=== PATIENT | female | born 1950 | race African-American/Black ===

== ENCOUNTER → 2017-09-28 08:40 | Outpatient (REF) | payer MEDICARE, MEDICAID, SELFPAY ==
[2017-09-28 14:15] LABS: ALT 20 U/L (12-78); AST 20 U/L (15-37); Albumin 3.5 g/dL (3.4-5.0); Alkaline Phosphatase 87 U/L (46-116); Anion Gap 9.8 mmol/L (3-11); BUN 21 mg/dL (7-18); Bilirubin, Total 0.4 mg/dL (0.2-1.0); CO2 27.2 mmol/L (21.0-32.0); CREATININE 0.97 mg/dL (0.55-1.02); Calcium 9.2 mg/dL (8.5-10.1); Chloride 106 mmol/L (98-107); Cholesterol 266 mg/dL (50-200); Estimated GFR 57.11 (mL/min/1.73m2); Glucose 108 mg/dL (70-100); HDL Cholesterol 49 mg/dL (40-60); LDL CHOLESTEROL 172 mg/dL (<100); Potassium 4.1 mmol/L (3.5-5.1); Sodium 143 mmol/L (136-145); Total Protein 7.4 g/dL (6.4-8.2); Triglyceride 230 mg/dL (30-150)
== END ==
LOC: NCHCN 08:40
PROVIDERS: PCP Nurse Practitioner Family; Visit Provider Nurse Practitioner Family
DX: E78.5 Hyperlipidemia, unspecified (principal); N26.1 Atrophy of kidney (terminal)
CPT/HCPCS: 80053; 80061; 83721

== ENCOUNTER 2018-02-09 00:22 | Outpatient (CLI) | payer MEDICARE, MEDICAID, SELFPAY ==
--- NOTE | 2018-02-09 12:52 | DI.US_ITS ---
SYMPTOMS/DIAGNOSIS: UTERINE LEIOMYOMA, FIBROID SIZE, D25.9 PELVIC ULTRASOUND: Comparison is made with August,. Transabdominal exam was performed. The uterus measures 13.1 x 8.5 x 8.7 cm. There has been mild interval increase in size of the previously noted fundal fibroid, now measuring 8.2 x 7.9 x 8.7 cm compared with 8 x 8.2 x 7.4 cm on the previous exam. Other smaller fibroids were identified. The endometrial stripe could not be visualized. The right ovary appears normal in size and appearance. The left ovary was not visualized. Right renal atrophy is again noted. The left kidney shows some compensatory hypertrophy. IMPRESSION: Mild interval increase in size of uterine fibroid.
== END 2018-02-09 00:42 ==
PROVIDERS: PCP Nurse Practitioner Family; Visit Provider Obstetrics & Gynecology
DX: D25.9 Leiomyoma of uterus, unspecified (principal)
CPT/HCPCS: 76856

== ENCOUNTER 2018-09-09 12:04 | Outpatient (REF) | payer MEDICARE, MEDICAID, SELFPAY ==
[2018-09-09 19:38] LABS: HGB 14.7 g/dL (12.0-15.5); Mean Corp. HGB Concentration 33.4 g/dL (32.0-36.0); Mean Corpuscular Hemoglobin 31.4 pg (27.0-33.0); Mean Platelet Volume 10.2 fL (8.0-11.0); Platelet Count 282 x1000/uL (130-400); RBC 4.68 m/cumm (4.00-5.20); RBC Distribution Width 13.1 % (11.7-14.6); White Blood Cell Count 7.09 k/cumm (4.4-10.8)
[2018-09-09 19:58] LABS: Anion Gap 5.2 mmol/L (3-11); BUN 30 mg/dL (7-18); CO2 35.8 mmol/L (21.0-32.0); CREATININE 0.94 mg/dL (0.55-1.02); Calcium 10.1 mg/dL (8.5-10.1); Chloride 97 mmol/L (98-107); Estimated GFR 59.04 (mL/min/1.73m2); Glucose 94 mg/dL (70-100); Sodium 138 mmol/L (136-145); TSH (W/Ref FT4) 1.55 uIU/mL (0.36-3.74)
[2018-09-09 20:06] LABS: PROTEIN < 6.0 mg/dL
[2018-09-09 20:07] LABS: Potassium 2.8 mmol/L (3.5-5.1)
[2018-09-09 20:08] LABS: COMMENT (LAB VIEW ONLY) 33.57 mg/dL
[2018-09-09 20:09] LABS: COMMENT (LAB VIEW ONLY) 33.89 mg/dL; Microalb ug/mg Crea 53.7 ug/mg Cr
== END 2018-09-09 12:24 ==
LOC: NCHCN 12:04
PROVIDERS: PCP Nurse Practitioner Family; Visit Provider Nurse Practitioner Family
DX: E11.610 Type 2 diabetes mellitus with diabetic neuropathic arthropathy (principal); R80.9 Proteinuria, unspecified
CPT/HCPCS: 80048; 85027; 82043; 82565; 82570; 84156; 84443

== ENCOUNTER 2018-10-04 16:06 | Outpatient (REF) | payer MEDICARE, MEDICAID, SELFPAY ==
[2018-10-04 17:08] LABS: Potassium 2.9 mmol/L (3.5-5.1)
--- NOTE | 2018-10-07 13:20 | CMPROGNOTE_ITS ---
- If Service Date Differs Date of service: 10/07/18 Time of Service: 13:20 Care Management Progress Note CM contacted Providers office patient has a new active prescription for potassium by her provider. Provider is aware of the K+ per lab. CM attempted contact with patient no answer on the cell and unable to leave a message. 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 Her follow up visit with Jesse Cheng is on 10/24/18.
== END 2018-10-04 16:26 ==
LOC: NCHCN 16:06
PROVIDERS: PCP Nurse Practitioner Family; Visit Provider Nurse Practitioner Family
DX: E87.6 Hypokalemia (principal)
CPT/HCPCS: 84132

== ENCOUNTER 2018-10-11 09:44 | Outpatient (CLI) | payer MEDICARE, MEDICAID, SELFPAY | END 2018-10-11 10:04 | PROVIDERS: PCP Nurse Practitioner Family; Visit Provider Nurse Practitioner Family | DX: E87.6 Hypokalemia (principal) | CPT/HCPCS: 36415; 84132 ==

== ENCOUNTER 2018-10-28 13:52 | Outpatient (REF) | payer MEDICARE, MEDICAID, SELFPAY ==
[2018-10-28 18:58] LABS: Anion Gap 12.5 mmol/L (3-11); BUN 17 mg/dL (7-18); CO2 26.5 mmol/L (21.0-32.0); CREATININE 1.07 mg/dL (0.55-1.02); Calcium 9.5 mg/dL (8.5-10.1); Chloride 102 mmol/L (98-107); Estimated GFR 50.84 (mL/min/1.73m2); Glucose 144 mg/dL (70-100); Potassium 3.3 mmol/L (3.5-5.1); Sodium 141 mmol/L (136-145)
== END 2018-10-28 14:12 ==
LOC: NCHCN 13:52
PROVIDERS: PCP Nurse Practitioner Family; Visit Provider Nurse Practitioner Family
DX: E87.6 Hypokalemia (principal)
CPT/HCPCS: 80048

== ENCOUNTER 2018-11-04 17:57 | Outpatient (REF) | payer MEDICARE, MEDICAID, SELFPAY ==
[2018-11-04 18:15] LABS: Anion Gap 9.3 mmol/L (3-11); BUN 21 mg/dL (7-18); CO2 30.7 mmol/L (21.0-32.0); Calcium 9.4 mg/dL (8.5-10.1); Chloride 102 mmol/L (98-107); Estimated GFR 54.97 (mL/min/1.73m2); Glucose 108 mg/dL (70-100); Potassium 3.3 mmol/L (3.5-5.1); Sodium 142 mmol/L (136-145)
== END 2018-11-04 18:17 ==
LOC: NCHCN 17:57
PROVIDERS: PCP Nurse Practitioner Family; Visit Provider Nurse Practitioner Family
DX: E87.6 Hypokalemia (principal)
CPT/HCPCS: 80048

== ENCOUNTER 2019-10-12 11:48 | Outpatient (REF) | payer MEDICARE, MEDICAID, SELFPAY ==
[2019-10-12 15:43] LABS: HGB 15.3 g/dL (11.2-15.7); MCH 32.4 pg (27.0-33.0); MCV 95.3 fL (80-95); Platelet Count 292 10^3/uL (130-400); RBC 4.72 10^6/uL (3.93-5.22); RDW 13.4 % (11.7-14.6); RDW-SD 47.2 fL; WBC 8.65 10^3/uL (4.4-10.8)
[2019-10-12 16:29] LABS: PROTEIN 123.9 mg/dL
[2019-10-12 16:30] LABS: COMMENT (LAB VIEW ONLY) 130.17 mg/dL; Prot/Crea Ur Ratio 0.95
[2019-10-12 16:40] LABS: COMMENT (LAB VIEW ONLY) 129.21 mg/dL
[2019-10-12 16:45] LABS: Microalb ug/mg Crea 673.2 ug/mg Cr
[2019-10-12 16:56] LABS: ALT 23 U/L (14-59); AST 15 U/L (15-37); Albumin 3.8 g/dL (3.4-5.0); Alkaline Phosphatase 84 U/L (46-116); Anion Gap 9.3 mmol/L (3-11); BUN 26 mg/dL (7-18); Bilirubin, Total 0.5 mg/dL (0.2-1.0); CO2 28.7 mmol/L (21.0-32.0); CREATININE 1.05 mg/dL (0.55-1.02); Calcium 9.9 mg/dL (8.5-10.1); Chloride 102 mmol/L (98-107); Cholesterol 257 mg/dL (<200); Estimated GFR 51.81 (mL/min/1.73m2); Glucose 194 mg/dL (74-106); HDL Cholesterol 39 mg/dL (40-60); Sodium 140 mmol/L (136-145); Total Protein 7.7 g/dL (6.4-8.2); Triglyceride 436 mg/dL (<150)
[2019-10-12 17:13] LABS: Potassium 2.9 mmol/L (3.5-5.1)
[2019-10-12 17:26] LABS: LDL CHOLESTEROL 147 mg/dL (<100)
== END 2019-10-12 12:08 ==
LOC: NCHCN 11:48
PROVIDERS: PCP Nurse Practitioner Family; Visit Provider Nurse Practitioner Family
DX: E11.610 Type 2 diabetes mellitus with diabetic neuropathic arthropathy (principal); E87.6 Hypokalemia; E78.5 Hyperlipidemia, unspecified
CPT/HCPCS: 80053; 80061; 83721; 85027; 82043; 82565; 82570; 84156

== ENCOUNTER 2019-11-10 18:34 | Outpatient (REF) | payer MEDICARE, MEDICAID, SELFPAY ==
[2019-11-10 20:06] LABS: Amylase 68 U/L (25-115)
== END 2019-11-10 18:54 ==
LOC: NCHCN 18:34
PROVIDERS: PCP Nurse Practitioner Family; Visit Provider Nurse Practitioner Family
DX: E87.6 Hypokalemia (principal); R10.13 Epigastric pain
CPT/HCPCS: 82150

== ENCOUNTER 2019-12-07 01:16 | Outpatient (CLI) | payer MEDICARE, MEDICAID, SELFPAY ==
--- NOTE | 2019-12-07 | DI.US_ITS ---
EXAM: US ABDOMEN CLINICAL HISTORY: EPIGASTRIC PAIN,R10.13,HEPATOMEGALY,R16.0 TECHNIQUE: Ultrasound performed using standard protocol. COMPARISON: US US pelvis from 02/09/2018 FINDINGS: Abdominal ultrasound was performed according to the usual protocol. Hepatic parenchyma is of increas ed echogenicity and is mildly heterogeneous in echotexture, dependent portions of are nonvisualized. Findings may represent hepatic steatosis. There is reportedly been a prior cholecystectomy. There is no biliary dilatation. Pancreas appears intact as visualized although incompletely seen. Right renal atrophy noted as seen on prior scans. Left kidney appears normal with no evidence of hyd ronephrosis or nephrolithiasis. Spleen is unremarkable in appearance. Abdominal aorta and IVC are of normal diameter. IMPRESSION: Probable hepatic steatosis. Otherwise unremarkable scan post cholecystectomy. DATA REPOSITORY:
== END 2019-12-07 01:36 ==
PROVIDERS: PCP Nurse Practitioner Family; Visit Provider Nurse Practitioner Family
DX: R16.0 Hepatomegaly, not elsewhere classified (principal); R10.13 Epigastric pain
CPT/HCPCS: 76700

== ENCOUNTER 2020-03-14 | Outpatient (REF) | payer MEDICARE, MEDICAID, SELFPAY ==
[2020-03-14 18:44] LABS: ALT 21 U/L (14-59); AST 15 U/L (15-37); Albumin 3.7 g/dL (3.4-5.0); Alkaline Phosphatase 86 U/L (46-116); Anion Gap 10.9 mmol/L (3-11); BUN 17 mg/dL (7-18); Bilirubin, Total 0.4 mg/dL (0.2-1.0); CO2 28.1 mmol/L (21.0-32.0); CREATININE 0.9 mg/dL (0.55-1.02); Calcium 9.9 mg/dL (8.5-10.1); Chloride 101 mmol/L (98-107); Glucose 100 mg/dL (74-106); Magnesium 1.8 mg/dL (1.8-2.4); Potassium 3.3 mmol/L (3.5-5.1); Sodium 140 mmol/L (136-145); Total Protein 7.6 g/dL (6.4-8.2)
[2020-03-14 18:45] LABS: HCT 42.1 % (36.0-46.0); HGB 14.3 g/dL (11.2-15.7); MCH 31.8 pg (27.0-33.0); MCV 93.6 fL (80-95); MPV 9.6 fL (8.0-11.0); Platelet Count 294 10^3/uL (130-400); RDW-SD 44.6 fL; WBC 7.73 10^3/uL (4.4-10.8)
[2020-03-14 19:27] LABS: Bilirubin Negative (Negative); Blood Negative (Negative); Clarity Clear (Clear); Glucose Negative (Negative); Ketones Negative (Negative); Leukocyte Esterase Trace (Negative); Nitrite Negative (Negative); Specific Gravity 1.015 (1.005-1.025); Urobilinogen 0.2 EU/dL (Up TO 0.2)
[2020-03-14 19:35] LABS: Epithelial Cells Moderate HPF (Negative); RBC Negative HPF (0-2); WBC 20-50 HPF (0-5)
[2020-03-14 19:36] LABS: Bacteria Many HPF (Negative); C & S Indicated? No/Sq. Contamination; Casts Negative LPF (Negative); Crystals Negative HPF (Negative); Mucus Negative (Negative)
[2020-03-14 20:50] LABS: Hemoglobin A1C 5.4 % (<5.7)
[2020-03-15 13:00] LABS: Vitamin D 25 Total 23.5 ng/ml (30-100)
[2020-03-15 13:09] LABS: Vitamin B12 468 pg/mL (193-986)
[2020-03-15 22:13] LABS: Folate 16.8 ng/mL (See Note)
== END 2020-03-15 00:22 | disposition home or self-care (01) ==
LOC: NCHCN
PROVIDERS: PCP Nurse Practitioner Family; Visit Provider Student in an Organized Health Care Education/Training Program
DX: K21.9 Gastro-esophageal reflux disease without esophagitis (principal); R10.13 Epigastric pain; E87.6 Hypokalemia; E11.610 Type 2 diabetes mellitus with diabetic neuropathic arthropathy; I10 Essential (primary) hypertension
CPT/HCPCS: 80053; 82306; 85027; 81003; 81015; 82607; 82746; 83036; 83735

== ENCOUNTER → 2020-05-31 11:28 | Outpatient (BNVA) | payer MEDICARE, MEDICAID, SELFPAY | PROVIDERS: PCP Nurse Practitioner Family; Referring Provider Nurse Practitioner Family; Visit Provider Physical Therapy Assistant | DX: K21.9 Gastro-esophageal reflux disease without esophagitis (principal); Z12.11 Encounter for screening for malignant neoplasm of colon; E11.9 Type 2 diabetes mellitus without complications; I10 Essential (primary) hypertension; G47.33 Obstructive sleep apnea (adult) (pediatric) | CPT/HCPCS: 99203 ==

== ENCOUNTER → 2020-06-20 13:26 | Outpatient (BNVA) | payer MEDICARE, MEDICAID, SELFPAY | PROVIDERS: PCP Nurse Practitioner Family; Referring Provider Nurse Practitioner Family; Visit Provider Physical Therapy Assistant | DX: K21.9 Gastro-esophageal reflux disease without esophagitis (principal); I10 Essential (primary) hypertension | CPT/HCPCS: 99213 ==

== ENCOUNTER 2020-06-28 19:45 | Outpatient (REF) | payer MEDICARE, MEDICAID, SELFPAY ==
[2020-06-28 18:56] LABS: Anion Gap 10.1 mmol/L (3-11); BUN 22 mg/dL (7-18); CO2 26.9 mmol/L (21.0-32.0); Calcium 9.5 mg/dL (8.5-10.1); Chloride 105 mmol/L (98-107); Estimated GFR 54.66 (mL/min/1.73m2); Glucose 211 mg/dL (74-106); Potassium 3.6 mmol/L (3.5-5.1); Sodium 142 mmol/L (136-145)
== END 2020-06-28 19:46 | disposition home or self-care (01) ==
LOC: NCHCN 19:45
PROVIDERS: PCP Nurse Practitioner Family; Visit Provider Physician Assistant
DX: I10 Essential (primary) hypertension (principal)
CPT/HCPCS: 80048

== ENCOUNTER → 2020-12-27 09:36 | Outpatient (BNVA) | payer MEDICARE, MEDICAID, SELFPAY | PROVIDERS: PCP Physician Assistant; Referring Provider Physician Assistant; Visit Provider Physical Therapy Assistant | DX: K21.9 Gastro-esophageal reflux disease without esophagitis (principal); Z12.11 Encounter for screening for malignant neoplasm of colon; I10 Essential (primary) hypertension; E11.9 Type 2 diabetes mellitus without complications | CPT/HCPCS: 99214 ==

== ENCOUNTER 2021-01-17 08:18 | Outpatient (REF) | payer MEDICARE, MEDICAID, SELFPAY ==
[2021-01-17 15:09] LABS: COMMENT (LAB VIEW ONLY) 65.08 mg/dL
[2021-01-17 15:23] LABS: ALT 28 U/L (14-59); AST 14 U/L (15-37); Albumin 3.7 g/dL (3.4-5.0); Alkaline Phosphatase 92 U/L (46-116); Anion Gap 9.6 mmol/L (3-11); BUN 21 mg/dL (7-18); Bilirubin, Total 0.2 mg/dL (0.2-1.0); CO2 29.4 mmol/L (21.0-32.0); CREATININE 0.8 mg/dL (0.55-1.02); Calcium 9.8 mg/dL (8.5-10.1); Calculated LDL 181 mg/dL (<100); Chloride 105 mmol/L (98-107); Cholesterol 275 mg/dL (<200); Glucose 125 mg/dL (74-106); HDL Cholesterol 44 mg/dL (40-60); Sodium 144 mmol/L (136-145); Total Protein 7.6 g/dL (6.4-8.2); Triglyceride 251 mg/dL (<150)
[2021-01-17 16:04] LABS: Hemoglobin A1C 7.1 % (<5.7)
== END 2021-01-17 08:19 | disposition home or self-care (01) ==
LOC: NCHCN 08:18
PROVIDERS: PCP Physician Assistant; Visit Provider Physician Assistant
DX: E11.610 Type 2 diabetes mellitus with diabetic neuropathic arthropathy (principal); E78.5 Hyperlipidemia, unspecified
CPT/HCPCS: 80053; 80061; 82043; 82570; 83036

== ENCOUNTER 2021-04-28 01:53 | Outpatient (CLI) | payer OTHER, MEDICAID, SELFPAY ==
--- NOTE | 2021-04-28 | DI.MAMMO_ITS ---
Exam(s) MAMMO SCREENING EXAM: MAMMO SCREENING CLINICAL HISTORY: SCREENING FOR BREAST CANCER Z12.39. TECHNIQUE: Bilateral full field digital CC and MLO mammographic images were obtained with 3D tomosyn thesis and utilizing computer aided detection (CAD). COMPARISON: Prior mammograms were reviewed, the most recent being March 2017. FINDINGS: Asymmetric tissue anteriorly in the right breast CC view less concerning appearance 3D imaging and no t evident on MLO. No new malignant-appearing microcalcification groups in this region or elsewhere in either breast. S cattered benign micro and macrocalcifications are again noted. There are no new spiculated masses nor malignant appearing microcalcification groups. There is no significant architectural distortion nor skin thickening-retraction. IMPRESSION: Benign findings. No radiographic evidence of malignancy. BI-RADS Category 2 - Benign Findings Breast Density - Category B - Scattered areas of fibroglandular density Breast density Category C or D implies that the patient has dense breast tissue. Dense breast tissue can make it harder to find cancer on a mammogram. Dense breast tissue is also associated with an incr eased risk of breast cancer. This information about the result of the mammogram report was provided to the patient to raise their awareness. Use this report when you speak with the patient about their risks for breast cancer, which includes their family history. At that time, you may recommend additional screening tests (Ultrasoun d or MRI) as these tests may add significant information. A negative radiographic report should not delay biopsy if a dominant or clinically suspicious mass is present. Up to ten percent of cancers are not identified on mammography. A negative report may reinforce clinical impression. Adenosis and dense breasts may obscure an underlying neoplasm. False positive reports average 6 to 10%. Patient will receive a letter notifying them of these results.
== END 2021-04-28 02:13 ==
PROVIDERS: PCP Physician Assistant; Visit Provider Physician Assistant
DX: Z12.31 Encounter for screening mammogram for malignant neoplasm of breast (principal)
CPT/HCPCS: 77063; 77067

== ENCOUNTER 2021-06-26 20:24 | Outpatient (REF) | payer OTHER, MEDICAID, SELFPAY | END 2021-06-26 20:25 | disposition home or self-care (01) | LOC: NCHCN 20:24 | PROVIDERS: PCP Physician Assistant; Visit Provider Nurse Practitioner Family | DX: N39.0 Urinary tract infection, site not specified (principal) | CPT/HCPCS: 87077; 87086; 87186 ==

== ENCOUNTER 2021-09-04 10:20 | Emergency (ER) | payer OTHER, MEDICAID, SELFPAY ==
[2021-09-04 10:41] VITALS: BP 139/84; PULSE 103; RESP 20; TEMP 37; O2SAT 99
--- NOTE | 2021-09-04 11:00 | DI.CT_ITS ---
Exam(s) CT ABDOMEN PELVIS W EXAM: CT ABDOMEN PELVIS W CLINICAL HISTORY: Umbilical hernia, Now LLQ abd pain TECHNIQUE: Imaging Protocol: Axial computed tomography images with coronal and sagittal reformatted images were created and reviewed CONTRAST MATERIAL: Intravenous: Omnipaque 350 Contrast volume:100 mL Oral: No COMPARISON: CT ABD PELVIS WITH CONTRAST from 11/22/2014 CT CHEST FOR PULMONARY EMBOLUS from 01/11/2016 FINDINGS: ABDOMEN: Lung Bases: There is a moderate size hiatal hernia. There are stable tiny peripheral nodules in the lung bases. No follow-up is recommended. Liver: Normal density. No measurable mass. Portal, Superior Mesenteric, and Splenic Veins: Unremarkable. Gallbladder and Biliary Tract: Status post cholecystectomy. No biliary ductal dilatation. Pancreas: Normal density, no abnormal calcifications or inflammatory process. Spleen: Normal. Adrenals: No masses seen. Kidneys: There is again seen marked right renal atrophy. The left kidney is unremarkable. No radiod ense stones or obstructive uropathy. No masses seen. Abdominal Aorta: Abdominal portion non-dilated. Atherosclerosis is present. Bowel: No obstruction or bowel wall thickening. Appendix is unremarkable. There is diverticulosis in the sigmoid colon, but no evidence of acute diverticulitis. Peritoneal Cavity: No ascites, collection or mesenteric inflammatory response. No free air. Lymph Nodes: Within normal limits. Bones: Within normal limits for the patient's age. Soft Tissues: Unremarkable. PELVIS: Bladder: Symmetric distention, no gross wall thickening. Reproductive Organs: The uterus is markedly enlarged with a partially calcified mass measuring 9.6 x 8.6 cm most suggestive of a uterine fibroid. Lymph Nodes: Within normal limits. Bones: Within normal limits for the patient's age. IMPRESSION: 1. No acute abdominal or pelvic process. 2. Results of this exam have been verbally communicated with provider. RADIATION DOSE DELIVERED: 754.2mGy.cm Total DLP DATA REPOSITORY: All CT scans at this facility are submitted to the National Radiology Data Registry (NRDR) Dose Index Registry (DIR) with the [employer] (ACR). RADIATION OPTIMIZATION: All CT scans at this facility use at least one of these dose optimization te chniques: automated exposure control; mA and/or kV adjustment per patient size (includes targeted exa ms where dose is matched to clinical indication); or iterative reconstruction.
--- NOTE | 2021-09-04 11:02 | ED.GENADUL_ITS ---
Discharge Plan Disposition Patient Disposition: HOME Condition: Improving Discharge Details Clinical Impression: Acute cystitis Primary Care Provider: Marco A Kendall ED Provider: Terell Jason Home Meds and New Rx's Prescriptions: New cephalexin 500 mg capsule 500 mg PO TID 7 Days Qty: 21 0RF Continued cholecalciferol (vitamin D3) 25 mcg (1,000 unit) capsule 25 mcg PO DAILY Biotene Dry Mouth Oral Rinse Mouthwash 15 ml mucous membrane BID-QID PRN Rx Instructions: swish for 15-30 secs , then spit out; do not swallow albuterol sulfate [Ventolin HFA] 90 mcg/actuation HFA aerosol inhaler 2 puff inhalation Q6H PRN acetaminophen [Tylenol] 325 mg capsule 325 mg PO PRN PRN dexlansoprazole [Dexilant] 30 mg capsule,biphase delayed releas 30 mg PO DAILY amlodipine 10 mg tablet 10 mg PO DAILY polyethylene glycol 3350 [Miralax] 17 gram/dose powder 17 g PO DAILY venlafaxine [Effexor XR] 150 MG capsule,extended release 24hr 75 mg PO DAILY venlafaxine [Effexor XR] 150 MG capsule,extended release 24hr 150 mg PO DAILY valsartan 320 mg tablet 1 tab PO DAILY Label Comments: TAKE ONE TABLET BY MOUTH EVERY DAY rosuvastatin 5 mg tablet 1 tab PO DAILY Label Comments: TAKE ONE TABLET BY MOUTH EVERY DAY insulin glargine [Basaglar KwikPen U-100 Insulin] 100 unit/mL (3 mL) insulin pen 32 unit SUBCUT HS Label Comments: INJECT 32 UNITS UNDER THE SKIN EVERY NIGHT Discharge Instructions Instructions: Urinary Tract Infection in Women (ED) Additional Instructions: Home to rest today. Very small, frequent sips of fluids to maintain good hydration. Take cephalexin as prescribed until finished. Resume normal routine and activities. Return for any acute concern Medical Decision Making 71-year-old female with a known umbilical hernia, diabetes, GERD. She presents with 3 to 4 days progressive primarily lower abdominal pain is now worse with movement and associated with bloating. She had normal bowel movement yesterday. She has not noted a fever. Patient is afebrile with slightly elevated heart rate at triage. Her exam reveals lower quadrant abdominal tenderness. Differential diagnosis includes diverticulitis, constipation, small bowel obstruction. Laboratories reveal a urinalysis that shows urine nitrites. Micro urinalysis performed Culture is pending. Laboratories are reassuring. CT imaging shows known fibroid uterus, no evidence of incarcerated hernia nor of acute bowel inflammation. Given the lower abdominal discomfort I do feel this is consistent with acute cystitis and will treat with a course of oral antibiotics. Patient is improved and feeling subjectively better. HPI General Mode of arrival: ambulatory . Date/Time Provider Initiated Documentation: 09/04/21 10:47 . Limitations to Documentation: no limitations . Information obtained by: patient . History of Present Illness 71 year old F presents to the emergency department with the chief complaint of Abdominal pain progressive over 4d, described as moderate, Quality is described as dull, and is localized to the abdomen. Patient reports no radiation. Patient s tarted experiencing this day(s) and it has been intermittent. No relieving factors improve symptom(s), Movement worsens symptoms . Patient notes loss of appetite and other (Nauseated, no emesis); denies fever/chills. Patient did receive the following treatments prior to arrival, none Related Data Home Medications Medication Instructions Recorded Confirmed venlafaxine 150 mg 75 mg PO DAILY 07/30/12 09/04/21 capsule,extended release 24 hr (Effexor XR) venlafaxine 150 mg 150 mg PO DAILY 01/11/16 09/04/21 capsule,extended release 24 hr (Effexor XR) acetaminophen 325 mg capsule 325 mg PO PRN PRN 03/21/20 09/04/21 (Tylenol) albuterol sulfate 90 mcg/actuation 2 puff inhalation Q6H PRN 03/21/20 09/04/21 aerosol inhaler (Ventolin HFA) cholecalciferol (vitamin D3) 25 25 mcg PO DAILY 03/21/20 09/04/21 mcg (1,000 unit) capsule saliva substitute combo no.9 15 ml mucous membrane BID-QID PRN 03/21/20 09/04/21 (Biotene Dry Mouth Oral Rinse mouthwash) dexlansoprazole 30 mg 30 mg PO DAILY 06/11/20 09/04/21 capsule,biphase delayed release (Dexilant) amlodipine 10 mg tablet 10 mg PO DAILY 12/26/20 09/04/21 polyethylene glycol 3350 17 17 g PO DAILY 12/26/20 09/04/21 gram/dose oral powder (Miralax) cephalexin 500 mg capsule 500 mg PO TID 7 days #21 caps 09/04/21 insulin glargine 100 unit/mL (3 32 unit subcut HS 09/04/21 09/04/21 mL) subcutaneous pen (Basaglar KwikPen U-100 Insulin) rosuvastatin 5 mg tablet 1 tab PO DAILY 09/04/21 09/04/21 valsartan 320 mg tablet 1 tab PO DAILY 09/04/21 09/04/21 Previous Rx's Medication Instructions Recorded cephalexin 500 mg capsule 500 mg PO TID 7 days #21 caps 09/04/21 Allergies Allergy/AdvReac Type Severity Reaction Status Date / Time celecoxib [From Celebrex] Allergy Intermediate Skin Rash Unverified 09/04/21 10:43 NSAIDS (Non-Steroidal AdvReac Intermediate single Unverified 09/04/21 10:43 Anti-Inflamma kidney aspirin AdvReac Mild GI UPSET Unverified 09/04/21 10:43 General Stated Complaint: Abd Prob MOISES: 3 Review of Systems Narrative: Umbilical hernia. No vomiting. Soft stool yesterday. 8 systems reviewed and other PFSH All Active Problems (Updated 09/04/21 @ 13:31 by Terell Jason MD) Acute cystitis (Acute) Medical History Atrophy of kidney solitary kidney Back pain Benign hypertension Colon cancer screening Depression Diabetes type 2, controlled Epigastric pain GERD (gastroesophageal reflux disease) Hepatomegaly Hyperlipidemia Hypertension Hypokalemia Incomplete bladder emptying Obstructive sleep apnea Prediabetes Proteinuria Restless legs Right upper quadrant pain Shoulder pain Tobacco abuse Urinary incontinence Surgical History Arthroscopy, Shoulder History of Surgical Procedure a. Bilateral tubal ligation. History of tubal ligation Family History Mother Diabetes Essential hypertension Social History Smoking/Tobacco Use Status: Current every day Tobacco Type: cigarettes Smoking packs per day: 1 Smoking cigarettes per day: 20.0 Smoking risk assessment performed?: Yes Alcohol Intake: current Alcohol Intake frequency: holidays/special occasions only Drug use: Never Substance use type: does not use Current gender identity: female Do you feel safe at home: Yes Do you feel safe in your relationship?: Yes Exam Narrative Exam Narrative: GEN: awake, alert, oriented 3. Pleasant, well groomed, interactive. HEAD: Normocephalic, atraumatic ENT: Mucous membranes moist, oropharynx unremarkable, External ear exam unremarkable EYES: PERRL, EOMI NECK: Full ROM, no RAJINDER, no menigismus CHEST/RESP: Nontender, clear to auscultation bilateral, no wheeze/rhonchi/rales CARDIOVASCULAR: RRR, no murmur, rub bebe. 2+ Rad pulse bilateral ABDOMEN: Soft, left lower quadrant abdominal tenderness to palpation., Palpable umbilical hernia. +Bowel sounds EXT: Full ROM, no edema, no rash Neuro: Grossly normal neurologic exam, conversant, interactive. Psych: Speech fluent, thoughts congruent, affect normal Course Vital Signs Vital signs: Vital Signs Temperature 37 C 09/04/21 10:41 Pulse 103 H 09/04/21 10:41 Respiratory Rate 20 09/04/21 10:41 Blood Pressure 139/84 09/04/21 10:41 Pulse Oximetry 99 09/04/21 10:41 Temperature 37 C 09/04/21 10:41 Temperature Source Skin 09/04/21 10:41 Pulse 103 H 09/04/21 10:41 Respiratory Rate 20 09/04/21 10:41 Respiratory Effort Non-Labored 09/04/21 10:50 Blood Pressure 139/84 09/04/21 10:41 Blood Pressure Position Sitting 09/04/21 10:41 Pulse Oximetry 99 09/04/21 10:41 Oxygen Delivery Method Room Air 09/04/21 10:41 Oxygen Flow Rate 0 09/04/21 10:41 Pain Level 6 09/04/21 10:41
[2021-09-04] MEDS: ACETAMINOPHEN 1,000 MG/100 ML BTL 400 MG IVPB (11:29)
[2021-09-04] MEDS: Ondansetron 4 MG/2 ML VIAL IVP (11:29)
[2021-09-04 11:35] LABS: Abs Immature Grans 0.03 10^3/uL (0.0-0.06); Absolute Basophil Count 0.04 10^3/uL (0.0-0.2); Absolute Lymphocyte Count 2.02 10^3/uL (1.2-3.4); Absolute Monocyte Count 0.45 10^3/uL (0.1-0.8); Absolute Neutrophil Count 6.62 10^3/uL (1.2-6.7); Basophils % 0.4; Eosinophils % 1.1; HGB 14.3 g/dL (11.2-15.7); Immature Grans % 0.3; Lymphocytes % 21.8; MCH 30.8 pg (27.0-33.0); MCHC 33.3 % (32.0-36.0); MCV 93 fL (80-95); MPV 9.4 fL (8.0-11.0); Monocytes % 4.9; Neutrophils % 71.5; Platelet Count 282 10^3/uL (130-400); RBC 4.64 10^6/uL (3.93-5.22); RDW 13.2 % (11.7-14.6); RDW-SD 44.6 fL; WBC 9.26 10^3/uL (4.4-10.8)
[2021-09-04 12:06] LABS: Lipase 128 U/L (73-393)
[2021-09-04 12:09] LABS: ALT 25 U/L (14-59); AST 16 U/L (15-37); Albumin 3.5 g/dL (3.4-5.0); Alkaline Phosphatase 97 U/L (46-116); Anion Gap 8.6 mmol/L (3-11); BUN 15 mg/dL (7-18); Bilirubin, Total 0.3 mg/dL (0.2-1.0); CO2 25.4 mmol/L (21.0-32.0); CREATININE 0.9 mg/dL (0.55-1.02); Calcium 9.6 mg/dL (8.5-10.1); Chloride 102 mmol/L (98-107); Glucose 287 mg/dL (74-106); Potassium 3.5 mmol/L (3.5-5.1); Sodium 136 mmol/L (136-145)
[2021-09-04 12:28] LABS: Bilirubin Negative (Negative); Blood Negative (Negative); Clarity Sl Cloudy (Clear); Glucose 250 mg/dL (Negative); Ketones Negative (Negative); Leukocyte Esterase Negative (Negative); Nitrite Positive (Negative); Urobilinogen 0.2 EU/dL (Up TO 0.2); pH 5.5 (5-8)
[2021-09-04 12:35] LABS: Bacteria Moderate HPF (Negative); C & S Indicated? Yes; Casts 3-5 Hyaline LPF (Negative); Crystals Negative HPF (Negative); Epithelial Cells Few HPF (Negative); Mucus Negative (Negative); RBC Negative HPF (0-2)
[2021-09-04] MEDS: Omnipaque 350 MG/ML 100 ML BTL IV (12:42)
== END 2021-09-04 13:43 | disposition home or self-care (01) ==
PROVIDERS: Emergency Provider Emergency Medicine; PCP Physician Assistant
DX: N30.00 Acute cystitis without hematuria (principal); I10 Essential (primary) hypertension; E11.9 Type 2 diabetes mellitus without complications; R00.0 Tachycardia, unspecified; D25.9 Leiomyoma of uterus, unspecified; F17.210 Nicotine dependence, cigarettes, uncomplicated; Z79.4 Long term (current) use of insulin
CPT/HCPCS: 36415; 80053; 83690; 87077; 96361; 96374; 96375; 99285; 74177; 81003; 81015; 83735; 85025; 87086; 87186; 99284; J0131; J2405; J3490

== ENCOUNTER 2021-12-24 04:15 | Emergency (ER) | payer OTHER, MEDICAID, SELFPAY ==
[2021-12-24] VITALS (11 sets, daily range): BP systolic 141–153; BP diastolic 77–85; PULSE 68–85; RESP 11–19; TEMP 36.8–37; O2SAT 99
--- NOTE | 2021-12-24 04:15 | RT.EKG_ITS ---
APPROVED REPORT Exam: Resting ECG Reason for Exam: Left side pain Patient Location: E HR:83 bpm ECG Measurements Heart Rate 83 AXIS SC 159 P 55 QRSd 91 QRS -7 QT 385 T 35 QTc 451 Conclusion Sinus rhythm...normal P axis, V-rate 60- 99 Left ventricular hypertrophy...multiple voltage criteria Physician: no stemi
--- NOTE | 2021-12-24 04:30 | DI.CT_ITS ---
Exam(s) CT ABDOMEN PELVIS WO EXAM: CT ABDOMEN PELVIS WO CLINICAL HISTORY: RLQ and LLQ abd pain, urinary frequency. TECHNIQUE: Imaging Protocol: Axial computed tomography images with coronal and sagittal reformatted images were created and reviewed. Oral: no COMPARISON: CT CT ABDOMEN PELVIS W from 09/04/2021 FINDINGS: ABDOMEN: Lung Bases: Stable tiny nodules at the lung bases, otherwise clear. Small hiatal hernia. Liver: Mild fatty infiltration. No measurable mass. Gallbladder and biliary tract: Status post cholecystectomy. No radiodense calculus or dilation. Pancreas: Normal density, no abnormal calcifications or inflammatory process. Spleen: Normal. Kidneys: Severely atrophic right kidney, unchanged. Compensatory hypertrophy of the left kidney. No radiodense stones or obstructive uropathy. No masses seen. Adrenal glands: No masses seen. Lymph nodes: Within normal limits. Abdominal Aorta: Abdominal portion non-dilated. Mild atherosclerotic changes. PELVIS: Bladder: Not well distended, no gross wall thickening. No stones or visible mass. Bowel: No obstruction or bowel wall thickening. Appendix normal. Moderate quantity of stool. Divert iculosis sigmoid colon without evidence of diverticulitis. Peritoneal cavity: No ascites, collection or mesenteric inflammatory response. Reproductive organs: Stable appearance of large uterine fibroids. Bones: Degenerative disc changes. No compression fracture. IMPRESSION: No acute abnormality. RADIATION DOSE DELIVERED: 819.48mGy.cm Total DLP DATA REPOSITORY: All CT scans at this facility are submitted to the National Radiology Data Registry (NRDR) Dose Index Registry (DIR) with the [employer] (A[employer]). RADIATION OPTIMIZATION: All CT scans at this facility use at least one of these dose optimization te chniques: automated exposure control; mA and/or kV adjustment per patient size (includes targeted exa ms where dose is matched to clinical indication); or iterative reconstruction.
[2021-12-24 04:31] LABS: Bilirubin Negative (Negative); Blood Negative (Negative); Clarity Sl Cloudy (Clear); Glucose 100 mg/dL (Negative); Ketones Negative (Negative); Leukocyte Esterase Trace (Negative); Nitrite Negative (Negative); Specific Gravity 1.025 (1.005-1.025)
[2021-12-24] MEDS: Normal Saline 500 ML IV (04:40)
[2021-12-24] MEDS: Ondansetron 4 MG/2 ML VIAL IVP (04:40)
[2021-12-24 04:42] LABS: Bacteria Few HPF (Negative); C & S Indicated? Yes; Crystals Negative HPF (Negative); Epithelial Cells Few HPF (Negative); Mucus Negative (Negative); RBC 0-2 HPF (0-2)
[2021-12-24 04:43] LABS: Abs Immature Grans 0.02 10^3/uL (0.0-0.06); Absolute Basophil Count 0.04 10^3/uL (0.0-0.2); Absolute Lymphocyte Count 2.41 10^3/uL (1.2-3.4); Absolute Monocyte Count 0.51 10^3/uL (0.1-0.8); Absolute Neutrophil Count 5.47 10^3/uL (1.2-6.7); Basophils % 0.5; Eosinophils % 2.3; HGB 13.9 g/dL (11.2-15.7); Immature Grans % 0.2; Lymphocytes % 27.9; MCH 30.6 pg (27.0-33.0); MCHC 33.1 % (32.0-36.0); MCV 93 fL (80-95); MPV 9.3 fL (8.0-11.0); Monocytes % 5.9; Neutrophils % 63.2; Platelet Count 273 10^3/uL (130-400); RBC 4.54 10^6/uL (3.93-5.22); RDW 13.1 % (11.7-14.6); RDW-SD 44.4 fL; WBC 8.65 10^3/uL (4.4-10.8)
[2021-12-24] MEDS: MORPHine 4 MG/ML SYR IVP (04:45)
[2021-12-24 05:07] LABS: ALT 19 U/L (14-59); AST 12 U/L (15-37); Albumin 3.6 g/dL (3.4-5.0); Alkaline Phosphatase 90 U/L (46-116); Anion Gap 8.6 mmol/L (3-11); BUN 15 mg/dL (7-18); Bilirubin, Total 0.3 mg/dL (0.2-1.0); CO2 28.4 mmol/L (21.0-32.0); Calcium 9.1 mg/dL (8.5-10.1); Chloride 104 mmol/L (98-107); Estimated GFR 59.86 (mL/min/1.73m2); Glucose 207 mg/dL (74-106); Lipase 145 U/L (73-393); Potassium 3.8 mmol/L (3.5-5.1); Sodium 141 mmol/L (136-145); Total Protein 7.9 g/dL (6.4-8.2); Troponin I < 50 ng/L (<or=60)
--- NOTE | 2021-12-24 05:10 | ED.GENADUL_ITS ---
Discharge Plan Disposition Patient Disposition: Home Condition: Good Discharge Details Clinical Impression: Urinary tract infection Primary Care Provider: Marco A Kendall ED Provider: Madi Gilmore Home Meds and New Rx's Prescriptions: New cephalexin 500 mg capsule 500 mg PO QID 7 Days Qty: 28 0RF No Action cholecalciferol (vitamin D3) 25 mcg (1,000 unit) capsule 25 mcg PO DAILY Biotene Dry Mouth Oral Rinse Mouthwash 15 ml mucous membrane BID-QID PRN Rx Instructions: swish for 15-30 secs , then spit out; do not swallow albuterol sulfate [Ventolin HFA] 90 mcg/actuation HFA aerosol inhaler 2 puff inhalation Q6H PRN acetaminophen [Tylenol] 325 mg capsule 325 mg PO PRN PRN dexlansoprazole [Dexilant] 30 mg capsule,biphase delayed releas 30 mg PO DAILY amlodipine 10 mg tablet 10 mg PO DAILY polyethylene glycol 3350 [Miralax] 17 gram/dose powder 17 g PO DAILY venlafaxine [Effexor XR] 150 MG capsule,extended release 24hr 75 mg PO DAILY venlafaxine [Effexor XR] 150 MG capsule,extended release 24hr 150 mg PO DAILY valsartan 320 mg tablet 1 tab PO DAILY Label Comments: TAKE ONE TABLET BY MOUTH EVERY DAY rosuvastatin 5 mg tablet 1 tab PO DAILY Label Comments: TAKE ONE TABLET BY MOUTH EVERY DAY insulin glargine [Basaglar KwikPen U-100 Insulin] 100 unit/mL (3 mL) insulin pen 32 unit SUBCUT HS Label Comments: INJECT 32 UNITS UNDER THE SKIN EVERY NIGHT Discharge Instructions Instructions: Urinary Tract Infection in Women (ED) Additional Instructions: At this time you have evidence of a urinary tract infection. Please take the antibiotic Keflex as directed. Is been sent to your pharmacy on file. Please take cranberry concentrate to help reduce risk of future infection. Please drink plenty fluids and stay well-hydrated. If you notice any worsening of your symptoms, or any new symptoms such as vomiting, diarrhea, fever, chills, shortness of breath, chest pain, numbness, weakness, or fainting , please return immediately to the emergency department for reevaluation. Please follow up with your primary care provider as soon as possible for reassessment and reevaluation. As always, it was a pleasure participating in your medical care today. Referrals: Marco A Kendall [Primary Care Provider] - Discharge Data Discharge Date/Time-TO BE ENTERED AT DEPARTURE: 12/24/21 05:33 Discharge Physician: Madi Gilmore Medical Decision Making This is a 71-year-old -[place] female with a past medical history of uterine fibroids, type 2 diabetes, GERD, high cholesterol, hypertension, obstructive sleep apnea, and a past surgical history of a tubal ligation and cholecystectomy who presents today for evaluation of lower abdominal pain. Pain is been present for the last 20 hours. It started last night. She has associated urinary frequency. Pain is described as sharp and achy in the left and right lower quadrants. She denies any vomiting or diarrhea. No hematuria, no dysuria. She did have a urinary tract infection few months ago and it felt similar to this. She denies any other complaints at this time. No other modifying factors. Physical exam demonstrates mild lower abdominal tenderness. No guarding or rebound. Differential is highest for UTI, diverticulitis or less likely appendicitis. We will get a CT scan, treat the patient's pain, evaluate for these concerning etiologies, monitor closely and reassess 5:21 AM EKG is unremarkable, troponin normal, urinalysis shows evidence of UTI., The patient's last urine culture was positive for E. coli and was pansensitive. We will give 2 g of ceftriaxone here and treat with Keflex for home. Patient does have evidence of a large fibroid noted on CAT scan. We are still pending final result. I do suspect this may be a component of her recurring UTIs. 5:30 AM No other acute process noted on CT scan. Patient stable for discharge. Discussed red flags which to return. I have extensively reviewed the treatment plan and discharge instructions with the patient. I have addressed all patient concerns at this time. The patient was made aware of what symptoms to monitor for that would warrant a return to the emergency department. Discussed the plan with the patient, they demonstrate verbal understanding and agreement with our assessment and plan at this time. The documentation in this chart was dictated using [employer] dictation software. Please excuse any dictation errors. FINDINGS: Lungs: Stable 2 mm and 4 mm ground-glass nodules in the posterior right lower lobe. Minimal linear scarring in the right lower lobe the. Lung bases are otherwise clear. No pleural effusions. Liver: Mild hepatic steatosis. No acute abnormality. Gallbladder and bile ducts: The gallbladder is surgically absent. There is no intrahepatic or extrahepatic biliary ductal dilatation. Pancreas: Unremarkable. Spleen: Unremarkable. The spleen is normal in size. Adrenal glands: Unremarkable. Kidneys and ureters: The right kidney is again noted to be severely atrophic. There is no hydronephrosis or hydroureter. No calcifications are identified in the kidneys or ureters. Stomach and bowel: The stomach is almost completely collapsed/decompressed. There is a small hiatal hernia. The small and large bowel are normal in caliber. There are scattered diverticula throughout the descending and sigmoid colon without pericolonic inflammatory changes to suggest diverticulitis. Appendix: A nondilated appendix is identified. Intraperitoneal space: Unremarkable. No ascites, fluid collection, or pneumoperitoneum. Retroperitoneal space: Unremarkable. No retroperitoneal collection or mass. Vasculature: Mild atherosclerotic vascular calcifications. Normal caliber abdominal aorta. Lymph nodes: No pathologically enlarged lymph nodes. Urinary bladder: Underdistended and therefore not well characterized. No intraluminal calcifications. Reproductive: Bulky, enlarged lobulated myomatous uterus, not significantly changed. Bones/joints: Degenerative changes. No suspicious osseous lesions. Soft tissues: Unremarkable. IMPRESSION: 1. No acute abnormality in the abdomen or pelvis. No evidence of an inflammatory or obstructive process. 2. Stable chronic and incidental findings are discussed in the body of the report. Thank you for allowing us to participate in the care of your patient. Dictated and Authenticated by: Carla Srivastava MD 12/24/2021 5:30 AM Eastern Time ([place] & [place]) Sign Out No HPI General Date/Time Provider Initiated Documentation: 12/24/21 04:22 . HPI Narrative: This is a 71-year-old -[place] female with a past medical history of uterine fibroids, type 2 diabetes, GERD, high cholesterol, hypertension, obstructive sleep apnea, and a past surgical history of a tubal ligation and cholecystectomy who presents today for evaluation of lower abdominal pain. Pain is been present for the last 20 hours. It started last night. She has associated urinary frequency. Pain is described as sharp and achy in the left and right lower quadrants. She denies any vomiting or diarrhea. No hematuria, no dysuria. She did have a urinary tract infection few months ago and it felt similar to this. She denies any other complaints at this time. No other modifying factors. Related Data Home Medications Medication Instructions Recorded Confirmed venlafaxine 150 mg 75 mg PO DAILY 07/30/12 12/24/21 capsule,extended release 24 hr (Effexor XR) venlafaxine 150 mg 150 mg PO DAILY 01/11/16 12/24/21 capsule,extended release 24 hr (Effexor XR) acetaminophen 325 mg capsule 325 mg PO PRN PRN 03/21/20 09/04/21 (Tylenol) albuterol sulfate 90 mcg/actuation 2 puff inhalation Q6H PRN 03/21/20 12/24/21 aerosol inhaler (Ventolin HFA) cholecalciferol (vitamin D3) 25 25 mcg PO DAILY 03/21/20 12/24/21 mcg (1,000 unit) capsule saliva substitute combo no.9 15 ml mucous membrane BID-QID PRN 03/21/20 12/24/21 (Biotene Dry Mouth Oral Rinse mouthwash) dexlansoprazole 30 mg 30 mg PO DAILY 06/11/20 12/24/21 capsule,biphase delayed release (Dexilant) amlodipine 10 mg tablet 10 mg PO DAILY 12/26/20 12/24/21 polyethylene glycol 3350 17 17 g PO DAILY 12/26/20 12/24/21 gram/dose oral powder (Miralax) insulin glargine 100 unit/mL (3 32 unit subcut HS 09/04/21 09/04/21 mL) subcutaneous pen (Basaglar KwikPen U-100 Insulin) rosuvastatin 5 mg tablet 1 tab PO DAILY 09/04/21 12/24/21 valsartan 320 mg tablet 1 tab PO DAILY 09/04/21 12/24/21 cephalexin 500 mg capsule 500 mg PO QID 7 days #28 caps 12/24/21 Previous Rx's Medication Instructions Recorded cephalexin 500 mg capsule 500 mg PO QID 7 days #28 caps 12/24/21 Allergies Allergy/AdvReac Type Severity Reaction Status Date / Time celecoxib [From Celebrex] Allergy Intermediate Skin Rash Unverified 12/24/21 04: 45 NSAIDS (Non-Steroidal AdvReac Intermediate single Unverified 12/24/21 04:45 Anti-Inflamma kidney aspirin AdvReac Mild GI UPSET Unverified 12/24/21 04:45 General Stated Complaint: Abd Prob MOISES: 3 Review of Systems All systems reviewed & are unremarkable except as noted in HPI and below PFSH All Active Problems (Updated 12/24/21 @ 05:23 by Madi Gilmore DO) Urinary tract infection (Acute) Medical History Atrophy of kidney solitary kidney Back pain Benign hypertension Colon cancer screening Depression Diabetes type 2, controlled Epigastric pain GERD (gastroesophageal reflux disease) Hepatomegaly Hyperlipidemia Hypertension Hypokalemia Incomplete bladder emptying Obstructive sleep apnea Prediabetes Proteinuria Restless legs Right upper quadrant pain Shoulder pain Tobacco abuse Urinary incontinence Surgical History Arthroscopy, Shoulder History of Surgical Procedure a. Bilateral tubal ligation. History of tubal ligation Family History Mother Diabetes Essential hypertension Social History Smoking/Tobacco Use Status: Current every day Tobacco Type: cigarettes Smoking packs per day: 1 Smoking cigarettes per day: 20.0 Smoking risk assessment performed?: Yes Alcohol Intake: current Alcohol Intake frequency: holidays/special occasions only Drug use: Never Substance use type: does not use Current gender identity: female Do you feel safe at home: Yes Do you feel safe in your relationship?: Yes Exam Narrative Exam Narrative: 1.Const: Well-nourished, Well-developed, appearing stated age 2.Eyes: PERRL, no conjunctival injection, and symmetrical lids. 3.ENT: Atraumatic external nose and ears. Moist MM. Neck: Symmetric, trachea midline, No thyromegaly. 4.CVS: +S1/S2, No murmurs or gallops. Peripheral pulses 2+ and equal in all extremities. Brisk capillary refill in all extremities. 5.RESP: Unlabored respiratory effort. Clear to auscultation bilaterally. No wheezes rales or rhonchi 6.GI: Soft, mild distention, no guarding or rebound. Mild pain in the right and left lower abdominal quadrants as well as the middle lower abdominal aspect. No vaginal discharge. No signs of an acute surgical abdomen. 7.MSK: Normocephalic/Atraumatic, Extremities w/o deformity or ttp No cyanosis or clubbing, Normal movement of all extremities 8.Skin: Warm, Dry. No rashes or lesions. 9.Neuro: information management specialist II-XII grossly intact. Sensation grossly intact, no focal neurologic deficits. 10.Psych: (AAO) x3. Appropriate mood and affect Course Vital Signs Vital signs: Vital Signs Temperature 36.8 C 12/24/21 04:20 Pulse 81 12/24/21 04:20 Respiratory Rate 16 12/24/21 04:20 Blood Pressure 153/85 H 12/24/21 04:20 Pulse Oximetry 99 12/24/21 04:20 Temperature 36.8 C 12/24/21 04:20 Temperature Source Temporal Artery Scan 12/24/21 04:20 Pulse 81 12/24/21 04:20 Respiratory Rate 16 12/24/21 04:20 Respiratory Effort 12/24/21 04:20 Blood Pressure 153/85 H 12/24/21 04:20 Blood Pressure Position Supine 12/24/21 04:20 Pulse Oximetry 99 12/24/21 04:20 Oxygen Delivery Method Room Air 12/24/21 04:20 Oxygen Flow Rate 0 12/24/21 04:20 Pain Level 8 12/24/21 04:20 Lab/Test Results Lab/Test Results: 12/24/21 04:20 Urine - Reflex from Ua Urine Culture - Pending Laboratory Tests Range/Units 12/24/21 12/24/21 04:20 04:35 WBC (4.4-10.8) 10^3/uL 8.65 RBC (3.93-5.22) 10^6/uL 4.54 Hgb (11.2-15.7) g/dL 13.9 Hct (36.0-46.0) % 42.0 MCV (80-95) fL 93 MCH (27.0-33.0) pg 30.6 MCHC (32.0-36.0) % 33.1 RDW (11.7-14.6) % 13.1 Plt Count (130-400) 10^3/uL 273 MPV (8.0-11.0) fL 9.3 Immature Gran % 0.2 Neutrophils % 63.2 Lymphocytes % 27.9 Monocytes % 5.9 Eosinophils % 2.3 Basophils % 0.5 Nucleated RBC % (0.0-0.3) % 0.0 Absolute Neutrophils (1.2-6.7) 10^3/uL 5.47 Absolute Lymphocytes (1.2-3.4) 10^3/uL 2.41 Absolute Monocytes (0.1-0.8) 10^3/uL 0.51 Absolute Eosinophils (0.0-0.7) 10^3/uL 0.20 Absolute Basophils (0.0-0.2) 10^3/uL 0.04 Urine Color (Yellow) Yellow Urine Clarity (Clear) Sl Cloudy Urine pH (5-8) 7.0 Ur Specific [place] (1.005-1.025) 1.025 Urine Protein (Negative) mg/dL 100 H Urine Ketones (Negative) mg/dL Negative Urine Blood (Negative) Negative Urine Nitrite (Negative) Negative Urine Bilirubin (Negative) Negative Urine Urobilinogen (Up TO 0.2) EU/dL 1.0 H Ur Leukocyte Esterase (Negative) Trace H Urine RBC (0-2) HPF 0-2 Urine WBC (0-5) HPF 10-20 H Ur Epithelial Cells (Negative) HPF Few Urine Crystals (Negative) HPF Negative Urine Bacteria (Negative) HPF Few Urine Mucus (Negative) Negative Ur Culture Indicated? Yes Urine Glucose (Negative) mg/dL 100
--- NOTE | 2021-12-24 05:30 | DI.VRAD_ITS ---
PROCEDURE INFORMATION: Exam: CT Abdomen And Pelvis Without Contrast Exam date and time: 12/24/2021 4:55 AM Age: 71 years old Clinical indication: Abdominal pain; Localized; Lower; Prior surgery; Surgery date: 6+ months; Surgery type: Cholecystectomy, tubal ligation; Patient HX: Rlq and llq abd pain, urinary frequency TECHNIQUE: Imaging protocol: Computed tomography of the abdomen and pelvis without contrast. Radiation optimization: All CT scans at this facility use at least one of these dose optimization techniques: automated exposure control; mA and/or kV adjustment per patient size (includes targeted exams where dose is matched to clinical indication); or iterative reconstruction. COMPARISON: CT ABDOMEN PELVIS W 09/04/2021 12:36 PM FINDINGS: Lungs: Stable 2 mm and 4 mm ground-glass nodules in the posterior right lower lobe. Minimal linear scarring in the right lower lobe the. Lung bases are otherwise clear. No pleural effusions. Liver: Mild hepatic steatosis. No acute abnormality. Gallbladder and bile ducts: The gallbladder is surgically absent. There is no intrahepatic or extrahepatic biliary ductal dilatation. Pancreas: Unremarkable. Spleen: Unremarkable. The spleen is normal in size. Adrenal glands: Unremarkable. Kidneys and ureters: The right kidney is again noted to be severely atrophic. There is no hydronephrosis or hydroureter. No calcifications are identified in the kidneys or ureters. Stomach and bowel: The stomach is almost completely collapsed/decompressed. There is a small hiatal hernia. The small and large bowel are normal in caliber. There are scattered diverticula throughout the descending and sigmoid colon without pericolonic inflammatory changes to suggest diverticulitis. Appendix: A nondilated appendix is identified. Intraperitoneal space: Unremarkable. No ascites, fluid collection, or pneumoperitoneum. Retroperitoneal space: Unremarkable. No retroperitoneal collection or mass. Vasculature: Mild atherosclerotic vascular calcifications. Normal caliber abdominal aorta. Lymph nodes: No pathologically enlarged lymph nodes. Urinary bladder: Underdistended and therefore not well characterized. No intraluminal calcifications. Reproductive: Bulky, enlarged lobulated myomatous uterus, not significantly changed. Bones/joints: Degenerative changes. No suspicious osseous lesions. Soft tissues: Unremarkable. IMPRESSION: 1. No acute abnormality in the abdomen or pelvis. No evidence of an inflammatory or obstructive process. 2. Stable chronic and incidental findings are discussed in the body of the report. Dictated and Authenticated by: Carla Srivastava MD. Ordering:VAN Barraza MD
[2021-12-24] MEDS: cefTRIAXone 2 GM/50 ML BAG IVPB (05:50)
== END 2021-12-24 06:24 | disposition home or self-care (01) ==
PROVIDERS: Emergency Provider Student in an Organized Health Care Education/Training Program; PCP Physician Assistant
DX: N39.0 Urinary tract infection, site not specified (principal); E11.9 Type 2 diabetes mellitus without complications; E78.00 Pure hypercholesterolemia, unspecified; I10 Essential (primary) hypertension; Z90.49 Acquired absence of other specified parts of digestive tract
CPT/HCPCS: 36415; 80053; 83690; 87077; 93005; 96361; 96365; 96372; 96375; 99284; 74176; 81003; 81015; 84484; 85025; 87086; 87186; 93010; 99285; J2270; J2405

== ENCOUNTER 2022-01-05 17:25 | Outpatient (REF) | payer OTHER, MEDICAID, SELFPAY | END 2022-01-05 17:26 | disposition home or self-care (01) | LOC: NCHCN 17:25 | PROVIDERS: PCP Physician Assistant; Visit Provider Physician Assistant | DX: N39.0 Urinary tract infection, site not specified (principal) | CPT/HCPCS: 87086 ==

== ENCOUNTER 2022-04-20 18:53 | Outpatient (REF) | payer OTHER, MEDICAID, SELFPAY | END 2022-04-20 18:54 | disposition home or self-care (01) | LOC: NCHCN 18:53 | PROVIDERS: PCP Physician Assistant; Visit Provider Nurse Practitioner Family | DX: R82.998 Other abnormal findings in urine (principal); L29.2 Pruritus vulvae | CPT/HCPCS: 87077; 87086; 87186; 87480; 87510; 87660 ==

== ENCOUNTER 2022-07-17 13:57 | Outpatient (REF) | payer OTHER, MEDICAID, SELFPAY ==
[2022-07-17 16:00] LABS: Hemoglobin A1C 6.6 % (<5.7)
[2022-07-17 16:07] LABS: ALT 23 U/L (14-59); AST 26 U/L (15-37); Albumin 3.3 g/dL (3.4-5.0); Alkaline Phosphatase 99 U/L (46-116); Anion Gap 8.9 mmol/L (3-11); BUN 15 mg/dL (7-18); Bilirubin, Total 0.3 mg/dL (0.2-1.0); CO2 27.1 mmol/L (21.0-32.0); CREATININE 0.7 mg/dL (0.55-1.02); Calcium 9.6 mg/dL (8.5-10.1); Calculated LDL 87 mg/dL (<100); Chloride 103 mmol/L (98-107); Cholesterol 170 mg/dL (<200); Estimated GFR 91.26 (mL/min/1.73m2); Glucose 106 mg/dL (74-106); HDL Cholesterol 54 mg/dL (40-60); Sodium 139 mmol/L (136-145); Triglyceride 146 mg/dL (<150)
== END 2022-07-17 13:58 | disposition home or self-care (01) ==
LOC: NCHCN 13:57
PROVIDERS: PCP Physician Assistant; Visit Provider Nurse Practitioner Family
DX: E11.610 Type 2 diabetes mellitus with diabetic neuropathic arthropathy (principal); I10 Essential (primary) hypertension; E78.5 Hyperlipidemia, unspecified
CPT/HCPCS: 80053; 80061; 83036

== ENCOUNTER 2023-03-28 11:14 | Emergency (ER) | payer OTHER, MEDICAID, SELFPAY ==
[2023-03-28] VITALS (35 sets, daily range): BP systolic 133–187; BP diastolic 79–101; PULSE 84–102; RESP 15–18; TEMP 37.1; O2SAT 92–99
--- NOTE | 2023-03-28 11:45 | DI.CT_ITS ---
Exam(s) CT ABDOMEN PELVIS W EXAM: CT ABDOMEN PELVIS W CLINICAL HISTORY: RUQ pain TECHNIQUE: Imaging Protocol: Axial computed tomography images with coronal and sagittal reformatted images were created and reviewed. CONTRAST MATERIAL: Intravenous: Omnipaque 350 Contrast volume:100 mL Oral: No COMPARISON: CT ABD PELVIS WO CONTRAST from 11/19/[address] ABDOMEN PELVIS W from 09/04/[address] ABDOMEN PELVIS WO from 12/24/2021 FINDINGS: ABDOMEN: Lung Bases: There is a small hiatal hernia. Stable right basilar pulmonary nodule. Liver: Normal density. No measurable mass. Portal, Superior Mesenteric, and Splenic Veins: Unremarkable. Gallbladder and Biliary Tract: Status post cholecystectomy. No significant biliary ductal dilatation . Pancreas: Normal density, no abnormal calcifications or inflammatory process. Spleen: Normal. Adrenals: No masses seen. Kidneys: There is atrophy again seen of the right kidney with heterogeneous enhancement. This is unc hanged. No radiodense stones or obstructive uropathy. No masses seen. Abdominal Aorta: Abdominal portion non-dilated. Atherosclerosis. Bowel: There is diverticulosis of the colon without evidence of acute diverticulitis. Appendix is un remarkable. Peritoneal Cavity: No ascites, collection or mesenteric inflammatory response. No free air. Lymph Nodes: Within normal limits. Bones: Within normal limits for the patient's age. Soft Tissues: Unremarkable. PELVIS: Bladder: Symmetric distention, no gross wall thickening. Reproductive Organs: There is again seen on the enlarged fibroid uterus. The largest fibroid is part ially calcified and measures 8.6 x 9.1 cm. Lymph Nodes: Within normal limits. Bones: Within normal limits for the patient's age. IMPRESSION: 1. No acute abdominal or pelvic process. 2. Large uterine fibroid is again seen. 3. Colonic diverticulosis without evidence of acute diverticulitis. 4. Status post cholecystectomy. RADIATION DOSE DELIVERED: 776.07mGy.cm Total DLP DATA REPOSITORY: All CT scans at this facility are submitted to the National Radiology Data Registry (NRDR) Dose Index Registry (DIR) with the [employer] (A[employer]). RADIATION OPTIMIZATION: All CT scans at this facility use at least one of these dose optimization te chniques: automated exposure control; mA and/or kV adjustment per patient size (includes targeted exa ms where dose is matched to clinical indication); or iterative reconstruction.
--- NOTE | 2023-03-28 11:45 | DI.RAD_ITS ---
Exam(s) XR CHEST 2V PA LATERAL EXAM: XR CHEST 2V PA LATERAL CLINICAL HISTORY: cough, right-sided pain TECHNIQUE: 2D digital imaging was performed of the chest. Two images were obtained. PA and lateral views were obtained. COMPARISON: CR CHEST 2 VIEWS PA,LAT from 08/06/2016 FINDINGS: MEDIASTINUM: Normal. HEART: Normal. PULMONARY VASCULATURE: Normal. LUNGS: Clear. PLEURAL SPACE: No pleural effusion or pneumothorax. BONE:Within normal limits for the patient's age. OTHER FINDINGS:Normal. IMPRESSION: No acute pulmonary findings. DATA REPOSITORY: RADIATION DOSE DELIVERED:
[2023-03-28 12:07] LABS: Abs Immature Grans 0.06 10^3/uL (0.0-0.06); Absolute Basophil Count 0.08 10^3/uL (0.0-0.2); Absolute Eosinophil Count 0.15 10^3/uL (0.0-0.7); Absolute Lymphocyte Count 2.59 10^3/uL (1.2-3.4); Absolute Monocyte Count 0.58 10^3/uL (0.1-0.8); Basophils % 0.6; Eosinophils % 1.2; HGB 14.9 g/dL (11.2-15.7); Immature Grans % 0.5; Lymphocytes % 20.1; MCH 30.5 pg (27.0-33.0); MCHC 33.9 % (32.0-36.0); MCV 90 fL (80-95); MPV 9.1 fL (8.0-11.0); Monocytes % 4.5; Neutrophils % 73.1; Platelet Count 323 10^3/uL (130-400); RBC 4.89 10^6/uL (3.93-5.22); RDW 13.1 % (11.7-14.6); RDW-SD 42.9 fL; WBC 12.91 10^3/uL (4.4-10.8)
[2023-03-28 12:13] LABS: Absolute Neutrophil Count 9.44 10^3/uL (1.2-6.7)
[2023-03-28] MEDS: Ondansetron 4 MG/2 ML VIAL IVP (12:17)
[2023-03-28 12:27] LABS: COVID-19 PCR Negative (Negative); Influenza A PCR Negative (Negative); Influenza B PCR Negative (Negative)
[2023-03-28 12:35] LABS: RSV PCR Positive (Negative); Source Nasopharynx
[2023-03-28 12:36] LABS: Lipase 47 U/L (16-77)
[2023-03-28 12:39] LABS: ALT 17 U/L (14-59); AST 15 U/L (15-37); Albumin 3.6 g/dL (3.4-5.0); Alkaline Phosphatase 111 U/L (46-116); Anion Gap 11.8 mmol/L (3-11); BUN 15 mg/dL (7-18); Bilirubin, Total 0.3 mg/dL (0.2-1.0); CO2 28.2 mmol/L (21.0-32.0); CREATININE 0.9 mg/dL (0.55-1.02); Calcium 10.3 mg/dL (8.5-10.1); Chloride 103 mmol/L (98-107); Estimated GFR 67.08 (mL/min/1.73m2); Glucose 136 mg/dL (74-106); Magnesium 2.2 mg/dL (1.8-2.4); Sodium 143 mmol/L (136-145); Total Protein 8.7 g/dL (6.4-8.2)
[2023-03-28] MEDS: Omnipaque 350 MG/ML 100 ML BTL IJ (13:24)
[2023-03-28] MEDS: Normal Saline - Diluent 50 ML VIAL IJ (13:26)
--- NOTE | 2023-03-28 13:49 | DI.VRAD_ITS ---
PROCEDURE INFORMATION: Exam: CT Abdomen And Pelvis With Contrast Exam date and time: 03/28/2023 1:12 PM Age: 73 years old Clinical indication: Other: Ruq pain; Prior surgery; Surgery date: 6+ months; Surgery type: Gallbladder , RT kidney removed TECHNIQUE: Imaging protocol: Computed tomography of the abdomen and pelvis with contrast. Radiation optimization: All CT scans at this facility use at least one of these dose optimization techniques: automated exposure control; mA and/or kV adjustment per patient size (includes targeted exams where dose is matched to clinical indication); or iterative reconstruction. Contrast material: OMNIPAQUE 350; Contrast volume: 100 ml; Contrast route: INTRAVENOUS (IV); COMPARISON: CT ABDOMEN PELVIS WO 12/24/2021 4:55 AM FINDINGS: Diaphragm: Small hiatal hernia. Liver: Normal. No mass. Gallbladder and bile ducts: Previous cholecystectomy. Pancreas: Normal. No ductal dilation. Spleen: Normal. No splenomegaly. Adrenal glands: Normal. No mass. Kidneys and ureters: Stable severe atrophy of the right kidney. Left kidney unremarkable. Stomach and bowel: Unremarkable. No obstruction. No mucosal thickening. Appendix: No evidence of appendicitis. Intraperitoneal space: Unremarkable. No free air. No significant fluid collection. Vasculature: Unremarkable. No abdominal aortic aneurysm. Lymph nodes: Unremarkable. No enlarged lymph nodes. Urinary bladder: Unremarkable as visualized. Reproductive: Large degenerating fibroid within the uterine fundus again noted, measuring 9 x 8.5 x 9.5 cm. Bones/joints: Unremarkable. No acute fracture. Soft tissues: Unremarkable. IMPRESSION: 1. Large degenerating fibroid within the uterine fundus again noted, measuring 9 x 8.5 x 9.5 cm. 2. Small hiatal hernia. Dictated and Authenticated by: Suzette Cm MD. Ordering:EMILIANO Wayne MD
--- NOTE | 2023-03-28 13:49 | DI.VRAD_ITS ---
PROCEDURE INFORMATION: Exam: XR Chest Exam date and time: 03/28/2023 1:15 PM Age: 73 years old Clinical indication: Other: Cough, right-sided pain TECHNIQUE: Imaging protocol: Radiologic exam of the chest. Views: 2 views. COMPARISON: CR CHEST 2 VIEWS PA,LAT 08/06/2016 2:11 PM FINDINGS: Lungs: Unremarkable. No consolidation. Pleural spaces: Unremarkable. No pleural effusion. No pneumothorax. Heart/Mediastinum: Tortuous aorta, stable. No cardiomegaly. Bones/joints: Surgical changes right shoulder. IMPRESSION: No acute findings. Dictated and Authenticated by: Suzette Cm MD. Ordering:EMILIANO Wayne MD
--- NOTE | 2023-03-28 14:11 | ED.GENADUL_ITS ---
HPI General Mode of arrival: ambulatory . Date/Time Provider Initiated Documentation: 03/28/23 11:15 . Limitations to Documentation: no limitations . Information obtained by: patient and RN notes reviewed . History of Present Illness 73 year old F presents to the emergency department with the chief complaint of Right flank pain, described as moderate, Patient started experiencing this hour(s) (3) and it has been constant. No relieving factors improve symptom(s), No exacerbating factors reported . Related Data Home Medications Medication Instructions Recorded Confirmed venlafaxine 150 mg 75 mg PO DAILY 07/30/12 03/28/23 capsule,extended release 24 hr (Effexor XR) venlafaxine 150 mg 150 mg PO DAILY 01/11/16 03/28/23 capsule,extended release 24 hr (Effexor XR) acetaminophen 325 mg capsule 325 mg PO PRN PRN 03/21/20 03/28/23 (Tylenol) albuterol sulfate 90 mcg/actuation 2 puff inhalation Q6H PRN 03/21/20 03/28/23 aerosol inhaler (Ventolin HFA) cholecalciferol (vitamin D3) 25 25 mcg PO DAILY 03/21/20 03/28/23 mcg (1,000 unit) capsule saliva substitute combo no.9 15 ml mucous membrane BID-QID PRN 03/21/20 03/28/23 (Biotene Dry Mouth Oral Rinse mouthwash) dexlansoprazole 30 mg 30 mg PO DAILY 06/11/20 03/28/23 capsule,biphase delayed release (Dexilant) amlodipine 10 mg tablet 10 mg PO DAILY 12/26/20 03/28/23 polyethylene glycol 3350 17 17 g PO DAILY 12/26/20 03/28/23 gram/dose oral powder (Miralax) insulin glargine 100 unit/mL (3 32 unit subcut HS 09/04/21 03/28/23 mL) subcutaneous pen (Alexaglar Jennifer U-100 Insulin) rosuvastatin 5 mg tablet 1 tab PO DAILY 09/04/21 03/28/23 valsartan 320 mg tablet 1 tab PO DAILY 09/04/21 03/28/23 semaglutide 0.25 mg or 0.5 mg (2 0.25 device subcut .WEEKLY 12/24/21 03/28/23 mg/1.5 mL) subcutaneous pen injector (Ozempic) amoxicillin 875 mg-potassium 1 tab PO Q12H #14 tabs 03/28/23 clavulanate 125 mg tablet Previous Rx's Medication Instructions Recorded amoxicillin 875 mg-potassium 1 tab PO Q12H #14 tabs 03/28/23 clavulanate 125 mg tablet Allergies Allergy/AdvReac Type Severity Reaction Status Date / Time celecoxib [From Celebrex] Allergy Intermediate Skin Rash Unverified 03/28/23 11:20 NSAIDS (Non-Steroidal AdvReac Intermediate single Unverified 03/28/23 11:20 Anti-Inflamma kidney aspirin AdvReac Mild GI UPSET Unverified 03/28/23 11:20 General Stated Complaint: GenMedical MOISES: 3 Review of Systems Constitutional Constitutional: Reports chills, Reports fever(s), Reports malaise and Reports poor appetite ENT Ears, Nose, Mouth, and Throat: Denies otalgia, Reports nasal congestion, Reports sinus pressure and Reports sore throat Cardiovascular Cardiovascular: Denies chest pain and Denies dyspnea Respiratory Respiratory: Reports cough, Denies pain on inspiration, Denies dyspnea and Denies wheezing Gastrointestinal Gastrointestinal: Reports abdominal pain, Denies diarrhea, Reports nausea and Reports vomiting Genitourinary Genitourinary: Reports flank pain Integumentary/Breasts Skin/Breast: Denies rash Allergic/Immunologic Allergic/Immunologic: Denies wheezing Exam Const General: cooperative Orientation: alert, awake and oriented x3 Resp Effort & Inspection: normal respiratory effort and able to speak in complete sentences Auscultation: clear to auscultation bilaterally Cardio Rate: regular rate Rhythm: regular rhythm Heart Sounds: S1 normal and S2 normal GI Palpation: soft, not firm, no guarding, no masses, no pulsatile masses, not rigid and tender in the RLQ and in the RUQ; Alvarado's sign negative and Rovsing's sign negative Auscultation: normal bowel sounds Back/Spine/Pelvis Back: no CVA tenderness Neuro General: patient alert, patient awake, patient oriented x3, gait normal and moves all extremities Course Vital Signs Vital signs: Vital Signs Temperature 37.1 C 03/28/23 11:17 Pulse 89 03/28/23 11:17 Respiratory Rate 18 03/28/23 11:17 Blood Pressure 177/101 H 03/28/23 11:17 Pulse Oximetry 97 03/28/23 11:17 Temperature 37.1 C 03/28/23 11:32 Temperature Source Temporal Artery Scan 03/28/23 11:32 Pulse 89 03/28/23 12:00 Respiratory Rate 15 03/28/23 11:32 Respiratory Effort Normal 03/28/23 11:32 Respiratory Depth Normal 03/28/23 11:32 Respiratory Pattern Normal 03/28/23 11:32 Blood Pressure 143/92 H 03/28/23 12:00 Blood Pressure Mean 111 03/28/23 12:00 Blood Pressure Position Sitting 03/28/23 11:32 Pulse Oximetry 95 03/28/23 12:01 Oxygen Delivery Method Room Air 03/28/23 11:32 Oxygen Flow Rate 0 03/28/23 11:17 Lab/Test Results Lab/Test Results: Laboratory Tests Range/Units 03/28/23 03/28/23 11:38 11:55 WBC (4.4-10.8) 10^3/uL 12.91 H RBC (3.93-5.22) 10^6/uL 4.89 Hgb (11.2-15.7) g/dL 14.9 Hct (36.0-46.0) % 44.0 MCV (80-95) fL 90 MCH (27.0-33.0) pg 30.5 MCHC (32.0-36.0) % 33.9 RDW (11.7-14.6) % 13.1 Plt Count (130-400) 10^3/uL 323 MPV (8.0-11.0) fL 9.1 Immature Gran % 0.5 Neutrophils % 73.1 Lymphocytes % 20.1 Monocytes % 4.5 Eosinophils % 1.2 Basophils % 0.6 Nucleated RBC % (0.0-0.3) % 0.0 Absolute Neutrophils (1.2-6.7) 10^3/uL 9.44 H Absolute Lymphocytes (1.2-3.4) 10^3/uL 2.59 Absolute Monocytes (0.1-0.8) 10^3/uL 0.58 Absolute Eosinophils (0.0-0.7) 10^3/uL 0.15 Absolute Basophils (0.0-0.2) 10^3/uL 0.08 Sodium (136-145) mmol/L 143 Potassium (3.5-5.1) mmol/L 4.0 Chloride (98-107) mmol/L 103 Carbon Dioxide (21.0-32.0) mmol/L 28.2 Anion Gap (3-11) mmol/L 11.8 H BUN (7-18) mg/dL 15 Creatinine (0.55-1.02) mg/dL 0.9 Est GFR (CKD-EPI 2020) (mL/min/1.73m2) 67.08 Glucose (74-106) mg/dL 136 H Calcium (8.5-10.1) mg/dL 10.3 H Magnesium (1.8-2.4) mg/dL 2.2 Total Bilirubin (0.2-1.0) mg/dL 0.3 AST (15-37) U/L 15 ALT (14-59) U/L 17 Alkaline Phosphatase (46-116) U/L 111 Total Protein (6.4-8.2) g/dL 8.7 H Albumin (3.4-5.0) g/dL 3.6 Lipase (16-77) U/L 47 COVID-19 Source Nasopharynx SARS-CoV-2 (PCR) (Negative) Negative Influenza Type A (PCR) (Negative) Negative Influenza Type B (PCR) (Negative) Negative RSV (PCR) (Negative) Positive A* Medical Decision Making Patient presenting to the emergency department for chief complaint of cold symptoms for over a month but then this morning started having some right-sided pain. Patient does state an episode of vomiting after eating this morning. Significant cough nasal congestion headache and malaise. Patient has contributing past medical history of diabetes, anxiety, single left-sided kidney, hyperlipidemia, hypertension. Review of vital signs that show the patient is hypertensive otherwise unremarkable vital signs, physical exam shows normal cardiac and respiratory exam, audible nasal congestion but otherwise nonconcerning, abdominal exam does show palpable and reproducible discomfort with palpation of the right upper and lower quadrant otherwise remainder of exam is noncontributory. Have some concern for possible pneumonia secondary to prolonged viral illness so we will perform chest x-ray, will perform labs due to abdominal pain and CT imaging. Pending results will give patient IV acetaminophen. Review of labs does show a leukocytosis with elevated white count of 12.9 and neutrophils of 9.4 otherwise unremarkable, CMP shows slightly elevated anion gap, elevated glucose and slight elevation of calcium otherwise lipase is normal, patient is positive for RSV remainder of viral panel and labs are unremarkable. CT imaging shows no acute findings on chest x-ray, abdominal CT does show large degenerating fibroid that has been previously noted on other imaging measuring 9 x 8 x 9.5 cm. There is also noted a small hiatal hernia. Patient reassessed and did state improvement of discomfort after the acetaminophen. I question possible early pneumonia given noted leukocytosis, right-sided pain, RSV positive, no other concerning findings on imaging. Given that patient is a diabetic we will go ahead and treat with antibiotics and otherwise discussed conservative management of symptoms. Patient to follow-up with primary care provider if not improving or return for new or worsening symptoms. After discussion of diagnosis and plan of care patient has no further needs, questions, or concerns and states clear understanding to return to the emergency department for any worsening symptoms. This documentation was generated using [employer] system, please disregard any oddities of phrase or misspellings. Lab Data Lab results reviewed: Yes I reviewed the patient's lab results. Quality:SDOH Health Related Social Needs: No Data to Display PFSH All Active Problems (Updated 03/28/23 @ 14:33 by Tone Irving NP) Right sided abdominal pain (Acute) RSV infection (Acute) Medical History Shoulder pain Back pain Incomplete bladder emptying Proteinuria Urinary incontinence Epigastric pain Hepatomegaly Atrophy of kidney solitary kidney Diabetes type 2, controlled Hyperlipidemia Hypokalemia GERD (gastroesophageal reflux disease) Colon cancer screening Restless legs Tobacco abuse Benign hypertension Prediabetes Obstructive sleep apnea Hypertension Depression Right upper quadrant pain Surgical History History of tubal ligation Arthroscopy, Shoulder History of Surgical Procedure a. Bilateral tubal ligation. Family History Mother Diabetes Essential hypertension Social History Smoking/Tobacco Use Status: Current every day Tobacco Type: cigarettes Smoking packs per day: 1 Smoking cigarettes per day: 20.0 Smoking risk assessment performed?: Yes Alcohol Intake: current Alcohol Intake frequency: holidays/special occasions only Drug use: Never Substance use type: does not use Current gender identity: female Do you feel safe at home: Yes Do you feel safe in your relationship?: Yes Discharge Plan Disposition Patient Disposition: Home Discharge Details Clinical Impression: RSV infection, Right sided abdominal pain Primary Care Provider: Marco A Kendall ED Provider: Tone Irving Home Meds and New Rx's Prescriptions: New amoxicillin-pot clavulanate 875-125 mg tablet 1 tab PO Q12H Qty: 14 0RF Continued cholecalciferol (vitamin D3) 25 mcg (1,000 unit) capsule 25 mcg PO DAILY Biotene Dry Mouth Oral Rinse Mouthwash 15 ml mucous membrane BID-QID PRN Rx Instructions: swish for 15-30 secs , then spit out; do not swallow albuterol sulfate [Ventolin HFA] 90 mcg/actuation HFA aerosol inhaler 2 puff inhalation Q6H PRN acetaminophen [Tylenol] 325 mg capsule 325 mg PO PRN PRN dexlansoprazole [Dexilant] 30 mg capsule,biphase delayed releas 30 mg PO DAILY amlodipine 10 mg tablet 10 mg PO DAILY polyethylene glycol 3350 [Miralax] 17 gram/dose powder 17 g PO DAILY venlafaxine [Effexor XR] 150 MG capsule,extended release 24hr 75 mg PO DAILY venlafaxine [Effexor XR] 150 MG capsule,extended release 24hr 150 mg PO DAILY valsartan 320 mg tablet 1 tab PO DAILY Patient Comments: TAKE ONE TABLET BY MOUTH EVERY DAY rosuvastatin 5 mg tablet 1 tab PO DAILY Patient Comments: TAKE ONE TABLET BY MOUTH EVERY DAY insulin glargine [Basaglar KwikPen U-100 Insulin] 100 unit/mL (3 mL) insulin pen 32 unit SUBCUT HS Patient Comments: INJECT 32 UNITS UNDER THE SKIN EVERY NIGHT Ozempic 0.25 mg or 0.5 mg(2 mg/1.5 mL) pen injector 0.25 device SUBCUT .WEEKLY Patient Comments: INJECT 0.25MG UNDER THE SKIN ONCE A WEEK Discharge Instructions Instructions: Respiratory Syncytial Virus (ED), Abdominal Pain (ED) Additional Instructions: Please continue to stay well-hydrated, get plenty of rest, and take [id number] acetaminophen as needed for fever or discomfort. Please take antibiotics as prescribed and for the full course of medication Return to the emergency department immediately for any new or significant worsening of symptoms otherwise follow-up with your primary care provider if not improving Referrals: Marco A Kendall [Primary Care Provider] - 5 days (If not improving) Discharge Data Discharge Date/Time-TO BE ENTERED AT DEPARTURE: 03/28/23 14:52
== END 2023-03-28 14:52 | disposition home or self-care (01) ==
PROVIDERS: Emergency Provider Nurse Practitioner Family; PCP Physician Assistant
DX: J12.1 Respiratory syncytial virus pneumonia (principal); E11.9 Type 2 diabetes mellitus without complications; I10 Essential (primary) hypertension; E78.5 Hyperlipidemia, unspecified; Z11.52 Encounter for screening for COVID-19; Z79.4 Long term (current) use of insulin; F17.210 Nicotine dependence, cigarettes, uncomplicated
CPT/HCPCS: 36415; 80053; 83690; 87637; 96374; 99285; 71046; 74177; 83735; 85025; 99284; J0131; J2405; J3490

== ENCOUNTER 2023-08-07 12:00 | Emergency (ER) | payer OTHER, MEDICAID, SELFPAY ==
[2023-08-07] VITALS (22 sets, daily range): BP systolic 137–189; BP diastolic 79–94; PULSE 67–92; RESP 16; TEMP 37.2; O2SAT 97–100
--- NOTE | 2023-08-07 12:15 | DI.CT_ITS ---
Exam(s) CT CHEST/ABD/PEL W EXAM: CT CHEST/ABD/PEL W CLINICAL HISTORY: cough, epigastric pain TECHNIQUE: Imaging Protocol: Axial computed tomography images with coronal and sagittal reformatted images were created and reviewed CONTRAST MATERIAL: Intravenous: Omnipaque 350 contrast volume:80 mL Oral: No COMPARISON: CT ABD PELVIS WITH CONTRAST from 11/22/2014 CT CHEST FOR PULMONARY EMBOLUS from 01/11/[address] ABDOMEN PELVIS WO from 12/24/[address] ABDOMEN PELVIS W from 03/28/2023 FINDINGS: CHEST: Tracheobronchial tree: Patent where visualized. Pulmonary parenchyma: There is a small tree-in-bud infiltrate in the right middle lobe. This can be seen with small airways disease or infiltrate. There are several subpleural pulmonary nodules presen t. Visualized thyroid gland: Unremarkable. Mediastinum and Emili: No dominant adenopathy or fluid collection. The esophagus is unremarkable. The re is a moderate size hiatal hernia. Pleura: No effusion or pneumothorax. Heart: The heart is not dilated. No coronary artery calcifications are seen. No pericardial effusion. Pulmonary arteries: Due to the bolus there is inadequate opacification of the peripheral pulmonary ar teries. No large central pulmonary embolus is seen. Aorta: Thoracic aorta non-dilated. No evidence of dissection. Atherosclerotic calcification is prese nt. Lymph nodes: Within normal limits. Soft tissues: Unremarkable. Bones:Within normal limits for the patient's age. ABDOMEN: Liver: Normal density. No measurable mass. Portal, Superior Mesenteric, and Splenic Veins: Unremarkable. Gallbladder and Biliary Tract: Status post cholecystectomy. No biliary ductal dilatation. Pancreas: Normal density, no abnormal calcifications or inflammatory process. Spleen: Normal. Adrenals: No masses seen. Kidneys: There is marked right renal atrophy again seen. There is compensatory hypertrophy of the le ft kidney. No radiodense stones or obstructive uropathy. No masses seen. Abdominal Aorta: Abdominal portion non-dilated. Atherosclerotic calcification is present. Bowel: There is diverticulosis of the colon but no evidence of acute diverticulitis. There is no micha dence of bowel obstruction or bowel wall thickening. Appendix is unremarkable. Peritoneal Cavity: No ascites, collection or mesenteric inflammatory response. No free air. Lymph Nodes: Within normal limits. Bones: Within normal limits for the patient's age. Soft Tissues: Unremarkable. PELVIS: Bladder: Symmetric distention, no gross wall thickening. Reproductive Organs: There is a large partially calcified mass which is arising from the uterus and m easures 9.7 AP by 9.0 transverse by 10.7 craniocaudad. This likely reflects a uterine fibroid. This has shown slight interval increase in size compared to 03/28/2023. Lymph Nodes: Within normal limits. Bones: Within normal limits. IMPRESSION: 1. Marked right renal atrophy is again seen. 2. Slight interval increase in size of the gastric hernia. 3. Possible slight interval increase in size of large partially calcified uterine fibroid. 4. Colonic diverticulosis without evidence of acute diverticulitis. 5. Tree in bud appearance in the right middle lobe. This can be seen with small airways disease or i nfiltrate. RADIATION DOSE DELIVERED: 915.17mGy.cm Total DLP DATA REPOSITORY: All CT scans at this facility are submitted to the National Radiology Data Registry (NRDR) Dose Index Registry (DIR) with the [employer] ([employer]). RADIATION OPTIMIZATION: All CT scans at this facility use at least one of these dose optimization te chniques: automated exposure control; mA and/or kV adjustment per patient size (includes targeted exa ms where dose is matched to clinical indication); or iterative reconstruction.
[2023-08-07] MEDS: Normal Saline 500 ML IV (13:00)
[2023-08-07] MEDS: Ondansetron 4 MG/2 ML VIAL IVP (13:00)
[2023-08-07 13:07] LABS: Lactate 1.4 mmol/L (0.6-1.4)
[2023-08-07 13:09] LABS: HCT 46.6 % (36.0-46.0); HGB 15.6 g/dL (11.2-15.7); MCH 30.8 pg (27.0-33.0); MCHC 33.5 % (32.0-36.0); MCV 92 fL (80-95); MPV 9.3 fL (8.0-11.0); Platelet Count 247 10^3/uL (130-400); RBC 5.06 10^6/uL (3.93-5.22); RDW 13.1 % (11.7-14.6); RDW-SD 44.3 fL; WBC 7.11 10^3/uL (4.4-10.8)
[2023-08-07 13:28] LABS: ALT 25 U/L (14-59); AST 19 U/L (15-37); Albumin 3.6 g/dL (3.4-5.0); Alkaline Phosphatase 97 U/L (46-116); BUN 24 mg/dL (7-18); CREATININE 1.1 mg/dL (0.55-1.02); Calcium 9.6 mg/dL (8.5-10.1); Chloride 103 mmol/L (98-107); Estimated GFR 52.73 (mL/min/1.73m2); Glucose 150 mg/dL (74-106); Lipase 63 U/L (16-77); Magnesium 1.8 mg/dL (1.8-2.4); Potassium 3.1 mmol/L (3.5-5.1); Sodium 143 mmol/L (136-145); Total Protein 8.7 g/dL (6.4-8.2); Troponin I < 50 ng/L (< or =60)
[2023-08-07 13:30] LABS: Absolute Basophil Count 0.07 10^3/uL (0.0-0.2); Absolute Lymphocyte Count 2.49 10^3/uL (1.2-3.4); Absolute Monocyte Count 0.64 10^3/uL (0.1-0.8); Absolute Neutrophil Count 3.91 10^3/uL (1.2-6.7); Atypical Lymphocytes % 5 %; Diff Comment Manual Differential; RBC Morphology Normal
[2023-08-07] MEDS: Normal Saline 1,000 ML 500 ML IV (13:49)
[2023-08-07] MEDS: Normal Saline - Diluent 50 ML VIAL IJ (14:04)
[2023-08-07] MEDS: Omnipaque 350 MG/ML 100 ML BTL IJ (14:05)
--- NOTE | 2023-08-07 14:58 | DI.VRAD_ITS ---
PROCEDURE INFORMATION: Exam: CT Chest With Contrast; Diagnostic Exam date and time: 08/07/2023 2:04 PM Age: 73 years old Clinical indication: Other: Epigastric pain; Abdominal pain; Cough; Prior surgery; Surgery date: 6+ months; Surgery type: Cholecystectomy TECHNIQUE: Imaging protocol: Diagnostic computed tomography of the chest with contrast. 3D rendering (Not supervised by radiologist): MIP and/or 3D reconstructed images were created by the technologist. Radiation optimization: All CT scans at this facility use at least one of these dose optimization techniques: automated exposure control; mA and/or kV adjustment per patient size (includes targeted exams where dose is matched to clinical indication); or iterative reconstruction. Contrast material: [id number]; Contrast volume: 80 ml; Contrast route: INTRAVENOUS (IV); COMPARISON: CT ABDOMEN PELVIS W 28/03/2023 13:12 FINDINGS: Lungs: Small tree-in-bud infiltrate involving the right middle lobe, series 4, image 28-31. Pleural spaces: Unremarkable. No pneumothorax. No pleural effusion. Heart: Enlarging retrocardiac gastric hernia. Stable cardiac silhouette. Lymph nodes: Unremarkable. No enlarged lymph nodes. Vasculature: Atherosclerotic disease. Bones/joints: Multilevel degenerative changes of the spine. Postsurgical changes of the right shoulder. Soft tissues: Unremarkable. IMPRESSION: 1. No acute findings. 2. Small tree-in-bud infiltrate right middle lobe. 3. Enlarging retrocardiac gastric hernia. 4. Additional findings as discussed above. PROCEDURE INFORMATION: Exam: CT Abdomen And Pelvis With Contrast Exam date and time: 08/07/2023 2:04 PM Age: 73 years old Clinical indication: Other: Epigastric pain; Abdominal pain; Cough; Prior surgery; Surgery date: 6+ months; Surgery type: Cholecystectomy TECHNIQUE: Imaging protocol: Computed tomography of the abdomen and pelvis with contrast. 3D rendering (Not supervised by radiologist): MIP and/or 3D reconstructed images were created by the technologist. Radiation optimization: All CT scans at this facility use at least one of these dose optimization techniques: automated exposure control; mA and/or kV adjustment per patient size (includes targeted exams where dose is matched to clinical indication); or iterative reconstruction. Contrast material: [id number]; Contrast volume: 80 ml; Contrast route: INTRAVENOUS (IV); COMPARISON: CT ABDOMEN PELVIS W 28/03/2023 13:12 FINDINGS: Heart: Enlarging retrocardiac gastric hernia. Liver: Normal. No mass. Gallbladder and biliary ducts: Cholecystectomy. Pancreas: Normal. No ductal dilation. Spleen: Normal. No splenomegaly. Adrenal glands: Normal. No mass. Kidneys and ureters: Right renal atrophy. The left kidney is unremarkable. Stomach and bowel: Unremarkable. No obstruction. No mucosal thickening. Appendix: No evidence of appendicitis. Intraperitoneal space: Unremarkable. No free air. No significant fluid collection. Vasculature: Atherosclerotic disease. Lymph nodes: Unremarkable. No enlarged lymph nodes. Urinary bladder: Unremarkable as visualized. Reproductive: Stable appearance of the large calcified uterine fibroid. Bones/joints: Multilevel degenerative scoliotic changes of the spine. Decreased bone mineralization. Soft tissues: Umbilical hernia. IMPRESSION: 1. No acute findings. 2. Enlarging retrocardiac gastric hernia. 3. Multiple additional findings as discussed above. Dictated and Authenticated by: Suzie Bennett MD. Ordering:EMILIANO Wayne MD
--- NOTE | 2023-08-07 15:10 | ED.GENADUL_ITS ---
Discharge Plan Disposition Patient Disposition: Home Discharge Details Clinical Impression: ALEXSANDER Primary Care Provider: Marco A Kendall ED Provider: Tone Irving Home Meds and New Rx's Prescriptions: No Action cholecalciferol (vitamin D3) 25 mcg (1,000 unit) capsule 25 mcg PO DAILY albuterol sulfate [Ventolin HFA] 90 mcg/actuation HFA aerosol inhaler 2 puff inhalation Q6H PRN acetaminophen [Tylenol] 325 mg capsule 325 mg PO PRN PRN dexlansoprazole [Dexilant] 30 mg capsule,biphase delayed releas 30 mg PO DAILY amlodipine 10 mg tablet 10 mg PO DAILY polyethylene glycol 3350 [Miralax] 17 gram/dose powder 17 g PO DAILY venlafaxine [Effexor XR] 150 MG capsule,extended release 24hr 75 mg PO DAILY venlafaxine [Effexor XR] 150 MG capsule,extended release 24hr 150 mg PO DAILY valsartan 320 mg tablet 1 tab PO DAILY Patient Comments: TAKE ONE TABLET BY MOUTH EVERY DAY rosuvastatin 5 mg tablet 1 tab PO DAILY Patient Comments: TAKE ONE TABLET BY MOUTH EVERY DAY Ozempic 0.25 mg or 0.5 mg(2 mg/1.5 mL) pen injector 0.25 device SUBCUT .WEEKLY Patient Comments: INJECT 0.25MG UNDER THE SKIN ONCE A WEEK Discharge Instructions Instructions: COVID-19 ED Additional Instructions: Please continue to stay well-hydrated, get plenty of rest and take appropriate [id number]-[id number] medication as needed. If you develop any shortness of breath difficulty breathing or severe worsening of symptoms feel free to return to the emergency department for reassessment otherwise follow-up with primary care provider if not improving in the next week. Referrals: Marco A Kendall [Primary Care Provider] - 1 week Discharge Data Discharge Date/Time-TO BE ENTERED AT DEPARTURE: 08/07/23 16:04 HPI General Mode of arrival: ambulatory . Date/Time Provider Initiated Documentation: 08/07/23 12:03 . Limitations to Documentation: no limitations . Information obtained by: patient and RN notes reviewed . History of Present Illness 73 year old F presents to the emergency department with the chief complaint of Cough, cold, vomiting, described as moderate, Quality is described as aching, Patient started experiencing this week(s) (1) and it has been constant. No relieving factors improve symptom(s), No exacerbating factors reported . Patient did receive the following treatments prior to arrival, none Related Data Home Medications Medication Instructions Recorded Confirmed venlafaxine 150 mg 75 mg PO DAILY 07/30/12 08/07/23 capsule,extended release 24 hr (Effexor XR) venlafaxine 150 mg 150 mg PO DAILY 01/11/16 08/07/23 capsule,extended release 24 hr (Effexor XR) acetaminophen 325 mg capsule 325 mg PO PRN PRN 03/21/20 08/07/23 (Tylenol) albuterol sulfate 90 mcg/actuation 2 puff inhalation Q6H PRN 03/21/20 08/07/23 aerosol inhaler (Ventolin HFA) cholecalciferol (vitamin D3) 25 25 mcg PO DAILY 03/21/20 08/07/23 mcg (1,000 unit) capsule dexlansoprazole 30 mg 30 mg PO DAILY 06/11/20 08/07/23 capsule,biphase delayed release (Dexilant) amlodipine 10 mg tablet 10 mg PO DAILY 12/26/20 08/07/23 polyethylene glycol 3350 17 17 g PO DAILY 12/26/20 08/07/23 gram/dose oral powder (Miralax) rosuvastatin 5 mg tablet 1 tab PO DAILY 09/04/21 08/07/23 valsartan 320 mg tablet 1 tab PO DAILY 09/04/21 08/07/23 semaglutide 0.25 mg or 0.5 mg (2 0.25 device subcut .WEEKLY 12/24/21 08/07/23 mg/1.5 mL) subcutaneous pen injector (Ozempic) Allergies Allergy/AdvReac Type Severity Reaction Status Date / Time celecoxib [From Celebrex] Allergy Intermediate Skin Rash Unverified 08/07/23 12:08 NSAIDS (Non-Steroidal AdvReac Intermediate single Unverified 08/07/23 12:08 Anti-Inflamma kidney aspirin AdvReac Mild GI UPSET Unverified 08/07/23 12:08 General Stated Complaint: Abd Prob MOISES: 3 Review of Systems Constitutional Constitutional: Reports chills, Denies fever(s), Denies headache(s), Reports malaise and Reports poor appetite ENT Ears, Nose, Mouth, and Throat: Denies headache(s), Reports nasal congestion and Reports sore throat Cardiovascular Cardiovascular: Denies chest pain and Denies dyspnea Respiratory Respiratory: Reports chest congestion, Reports cough and Denies dyspnea Gastrointestinal Gastrointestinal: Denies abdominal pain, Denies diarrhea, Reports nausea and Reports vomiting Musculoskeletal Musculoskeletal: Reports myalgias Neurologic Neurologic: Denies headache(s) Exam Const General: cooperative, comfortable and no acute distress Orientation: alert and awake [facility] Head: normal to inspection, normocephalic and atraumatic Ears: hearing grossly normal bilaterally and TM's normal bilaterally General nose exam: external nose normal Face and sinus: no erythema Mouth: oral mucosae normal, no drooling, no muffled voice and no trismus Throat: posterior oropharynx normal Neck Neck: normal visual inspection, full ROM, no lymphadenopathy, no meningeal signs, trachea midline and supple Resp Effort & Inspection: normal respiratory effort, able to speak in complete sentences and cough Quality of cough: dry Auscultation: clear to auscultation bilaterally Cardio Rate: tachycardic Rhythm: regular rhythm Heart Sounds: S1 normal, S2 normal, normal S1 and S2, no click, no gallops, no murmurs and no rubs GI Palpation: soft, not firm, no guarding and nontender Auscultation: normal bowel sounds Skin General skin exam: no rashes or lesions noted and dry skin (warm) Neuro General: patient alert, patient awake, patient oriented x3, gait normal and moves all extremities Cognition: normal cognition Speech: speech normal Course Vital Signs Vital signs: Vital Signs Temperature 37.2 C 08/07/23 12:04 Pulse 92 H 08/07/23 12:04 Respiratory Rate 16 08/07/23 12:04 Blood Pressure 189/89 H 08/07/23 12:04 Pulse Oximetry 99 08/07/23 12:04 Temperature 37.2 C 08/07/23 12:18 Temperature Source Core 08/07/23 12:18 Pulse 92 H 08/07/23 12:18 Respiratory Rate 16 08/07/23 12:18 Respiratory Effort Normal 08/07/23 12:35 Blood Pressure 189/89 H 08/07/23 12:18 Blood Pressure Position Sitting 08/07/23 12:18 Pulse Oximetry 100 08/07/23 13:02 Oxygen Delivery Method Room Air 08/07/23 12:18 Oxygen Flow Rate 0 08/07/23 12:18 Pain Level 0 08/07/23 12:18 Lab/Test Results Lab/Test Results: Laboratory Tests Range/Units 08/07/23 12:56 WBC (4.4-10.8) 10^3/uL 7.11 RBC (3.93-5.22) 10^6/uL 5.06 Hgb (11.2-15.7) g/dL 15.6 Hct (36.0-46.0) % 46.6 H MCV (80-95) fL 92 MCH (27.0-33.0) pg 30.8 MCHC (32.0-36.0) % 33.5 RDW (11.7-14.6) % 13.1 Plt Count (130-400) 10^3/uL 247 MPV (8.0-11.0) fL 9.3 Immature Gran % % 0.0 Neutrophils % % 55.0 Lymphocytes % % 30.0 Atypical Lymphs % % 5 Monocytes % % 9.0 Eosinophils % % 0.0 Basophils % % 1.0 Nucleated RBC % (0.0-0.3) % 0.0 Absolute Neutrophils (1.2-6.7) 10^3/uL 3.91 Absolute Lymphocytes (1.2-3.4) 10^3/uL 2.49 Absolute Monocytes (0.1-0.8) 10^3/uL 0.64 Absolute Eosinophils (0.0-0.7) 10^3/uL 0.00 Absolute Basophils (0.0-0.2) 10^3/uL 0.07 RBC Morphology Normal VBG Lactate (0.6-1.4) mmol/L 1.4 Sodium (136-145) mmol/L 143 Potassium (3.5-5.1) mmol/L 3.1 L Chloride (98-107) mmol/L 103 Carbon Dioxide (21.0-32.0) mmol/L 27.0 Anion Gap (3-11) mmol/L 13.0 H BUN (7-18) mg/dL 24 H Creatinine (0.55-1.02) mg/dL 1.1 H Est GFR (CKD-EPI 2020) (mL/min/1.73m2) 52.73 Glucose (74-106) mg/dL 150 H Calcium (8.5-10.1) mg/dL 9.6 Magnesium (1.8-2.4) mg/dL 1.8 Total Bilirubin (0.2-1.0) mg/dL 0.30 AST (15-37) U/L 19 ALT (14-59) U/L 25 Alkaline Phosphatase (46-116) U/L 97 Troponin I (< or =60) ng/L < 50 Total Protein (6.4-8.2) g/dL 8.7 H Albumin (3.4-5.0) g/dL 3.6 Lipase (16-77) U/L 63 Medical Decision Making Patient presenting to the emergency department for chief complaint of cough and cold symptoms for the past 7 days but also during that time states that she has not been able to keep any food or drink down. She mostly states per tussive emesis but also does report some difficulty even with staying hydrated. Patient is a diabetic but states that her sugars have been appropriate denies all other symptoms. Physical exam shows mild tachycardia, no hypoxia, clear lung sounds n ormal HEENT exam normal abdominal exam. Given patient's age and medical history we will plan on performing both laboratory evaluation along with CT imaging. Pending results will give patient IV fluids. Review of patient's labs show an overall unremarkable CBC with no emergent abnormalities noted and no shift, lactate of 1.4 which is nonconcerning, CMP does show a slightly low potassium at 3.1, anion gap of 13, BUN of 24 and creatinine of 1.1, glucose mildly elevated at 150 but not overall concerning, negative troponin, otherwise nondiagnostic CMP. Lipase is [address] imaging along with radiologist interpretation that shows no acute findings. We are still pending a COVID test and urinalysis and patient continuing to receive fluids. Patient tested positive for COVID. Patient reassessed and she is stating that she has wanted to go home. Tachycardia has improved with heart rate of 76, no hypoxia noted with patient being 99% on room air and some improvement of hypertension. Will give patient oral potassium and discuss conservative management of COVID. After discussion of diagnosis and plan of care patient has no further needs, questions, or concerns and states clear understanding to return to the emergency department for any worsening symptoms. This documentation was generated using [employer]pt[employer]ation system, please disregard any oddities of phrase or misspellings. Imaging Data Radiologic Study: Imaging: CT Scan Radiologist's impression: Exam(s) PROCEDURE INFORMATION: Exam: CT Chest With Contrast; Diagnostic Exam date and time: 08/07/2023 2:04 PM Age: 73 years old Clinical indication: Other: Epigastric pain; Abdominal pain; Cough; Prior surgery; Surgery date: 6+ months; Surgery type: Cholecystectomy TECHNIQUE: Imaging protocol: Diagnostic computed tomography of the chest with contrast. 3D rendering (Not supervised by radiologist): MIP and/or 3D reconstructed images were created by the technologist. Radiation optimization: All CT scans at this facility use at least one of these dose optimization techniques: automated exposure control; mA and/or kV adjustment per patient size (includes targeted exams where dose is matched to clinical indication); or iterative reconstruction. Contrast material: [id number]; Contrast volume: 80 ml; Contrast route: INTRAVENOUS (IV); COMPARISON: CT ABDOMEN PELVIS W 28/03/2023 13:12 FINDINGS: Lungs: Small tree-in-bud infiltrate involving the right middle lobe, series 4, image 28-31. Pleural spaces: Unremarkable. No pneumothorax. No pleural effusion. Heart: Enlarging retrocardiac gastric hernia. Stable cardiac silhouette. Lymph nodes: Unremarkable. No enlarged lymph nodes. Vasculature: Atherosclerotic disease. Bones/joints: Multilevel degenerative changes of the spine. Postsurgical changes of the right shoulder. Soft tissues: Unremarkable. IMPRESSION: 1. No acute findings. 2. Small tree-in-bud infiltrate right middle lobe. 3. Enlarging retrocardiac gastric hernia. 4. Additional findings as discussed above. PROCEDURE INFORMATION: Exam: CT Abdomen And Pelvis With Contrast Exam date and time: 08/07/2023 2:04 PM Age: 73 years old Clinical indication: Other: Epigastric pain; Abdominal pain; Cough; Prior surgery; Surgery date: 6+ months; Surgery type: Cholecystectomy TECHNIQUE: Imaging protocol: Computed tomography of the abdomen and pelvis with contrast. 3D rendering (Not supervised by radiologist): MIP and/or 3D reconstructed images were created by the technologist. Radiation optimization: All CT scans at this facility use at least one of these dose optimization techniques: automated exposure control; mA and/or kV adjustment per patient size (includes targeted exams where dose is matched to clinical indication); or iterative reconstruction. Contrast material: [id number]; Contrast volume: 80 ml; Contrast route: INTRAVENOUS (IV); COMPARISON: CT ABDOMEN PELVIS W 28/03/2023 13:12 FINDINGS: Heart: Enlarging retrocardiac gastric hernia. Liver: Normal. No mass. Gallbladder and biliary ducts: Cholecystectomy. Pancreas: Normal. No ductal dilation. Spleen: Normal. No splenomegaly. Adrenal glands: Normal. No mass. Kidneys and ureters: Right renal atrophy. The left kidney is unremarkable. Stomach and bowel: Unremarkable. No obstruction. No mucosal thickening. Appendix: No evidence of appendicitis. Intraperitoneal space: Unremarkable. No free air. No significant fluid collection. Vasculature: Atherosclerotic disease. Lymph nodes: Unremarkable. No enlarged lymph nodes. Urinary bladder: Unremarkable as visualized. Reproductive: Stable appearance of the large calcified uterine fibroid. Bones/joints: Multilevel degenerative scoliotic changes of the spine. Decreased bone mineralization. Soft tissues: Umbilical hernia. IMPRESSION: 1. No acute findings. 2. Enlarging retrocardiac gastric hernia. 3. Multiple additional findings as discussed above. Dictated and Authenticated by: Suzie Bennett MD. Lab Data Lab results reviewed: Yes I reviewed the patient's lab results. Quality:SDOH Health Related Social Needs: No Data to Display PFSH All Active Problems COVID (Acute) Medical History Shoulder pain Back pain Incomplete bladder emptying Proteinuria Urinary incontinence Epigastric pain Hepatomegaly Atrophy of kidney solitary kidney Diabetes type 2, controlled Hyperlipidemia Hypokalemia GERD (gastroesophageal reflux disease) Colon cancer screening Restless legs Tobacco abuse Benign hypertension Prediabetes Obstructive sleep apnea Hypertension Depression Right upper quadrant pain Surgical History History of tubal ligation Arthroscopy, Shoulder History of Surgical Procedure a. Bilateral tubal ligation. Family History Mother Diabetes Essential hypertension Social History Smoking/Tobacco Use Status: Current every day Tobacco Type: cigarettes Smoking packs per day: 1 Smoking cigarettes per day: 20.0 Smoking risk assessment performed?: Yes Alcohol Intake: current Alcohol Intake frequency: holidays/special occasions only Drug use: Never Substance use type: does not use Current gender identity: female Do you feel safe at home: Yes Do you feel safe in your relationship?: Yes
[2023-08-07 15:29] LABS: Influenza A PCR Negative (Negative); Influenza B PCR Negative (Negative); RSV PCR Negative (Negative)
[2023-08-07 15:31] LABS: Bilirubin Negative (Negative); Blood Negative (Negative); Clarity Clear (Clear); Glucose Negative (Negative); Ketones Negative (Negative); Leukocyte Esterase Negative (Negative); Nitrite Positive (Negative); Urobilinogen 0.2 mg/dL (Up to 0.2); pH 5.5 (5-8)
[2023-08-07 15:32] LABS: COVID-19 PCR Positive (Negative); Source NASOPHARYNX
[2023-08-07 15:39] LABS: Bacteria Many HPF (Negative); C & S Indicated? No/Sq. Contamination; Crystals Negative HPF (Negative); Epithelial Cells Moderate HPF (Negative); Mucus Trace (Negative); RBC 0-2 HPF (0-2)
[2023-08-07] MEDS: Potassium Chloride 20 MEQ TABCR 40 MEQ PO (16:03)
== END 2023-08-07 16:04 | disposition home or self-care (01) ==
PROVIDERS: Emergency Provider Nurse Practitioner Family; PCP Physician Assistant
DX: R11.10 Vomiting, unspecified (principal); U07.1 COVID-19; R05.9 Cough, unspecified; E11.9 Type 2 diabetes mellitus without complications
CPT/HCPCS: 74177; 80053; 82962; 83690; 87637; 96361; 96365; 96375; 99285; 71260; 81003; 81015; 83605; 83735; 84484; 85025; J0131; J2405; J3490

== ENCOUNTER 2024-03-09 14:54 | Outpatient (REF) | payer MEDICARE, MEDICAID, SELFPAY ==
[2024-03-09 19:10] LABS: Abs Immature Grans 0.02 10^3/uL (0.0-0.06); Absolute Basophil Count 0.06 10^3/uL (0.0-0.2); Absolute Eosinophil Count 0.12 10^3/uL (0.0-0.7); Absolute Lymphocyte Count 2.74 10^3/uL (1.2-3.4); Absolute Monocyte Count 0.44 10^3/uL (0.1-0.8); Absolute Neutrophil Count 4.35 10^3/uL (1.2-6.7); Basophils % 0.8 %; Eosinophils % 1.6 %; HCT 42.3 % (36.0-46.0); HGB 13.7 g/dL (11.2-15.7); Immature Grans % 0.3 %; Lymphocytes % 35.4 %; MCH 31.6 pg (27.0-33.0); MCHC 32.4 % (32.0-36.0); MCV 98 fL (80-95); MPV 9.2 fL (8.0-11.0); Monocytes % 5.7 %; Neutrophils % 56.2 %; Platelet Count 292 10^3/uL (130-400); RBC 4.34 10^6/uL (3.93-5.22); RDW 13.2 % (11.7-14.6); RDW-SD 47.5 fL; WBC 7.73 10^3/uL (4.4-10.8)
[2024-03-09 19:28] LABS: ALT 24 U/L (14-59); AST 20 U/L (15-37); Albumin 3.8 g/dL (3.4-5.0); Alkaline Phosphatase 78 U/L (46-116); Anion Gap 6.6 mmol/L (3-11); BUN 14 mg/dL (7-18); Bilirubin, Total 0.22 mg/dL (0.2-1.0); CO2 31.4 mmol/L (21.0-32.0); CREATININE 0.8 mg/dL (0.55-1.02); Calculated LDL 101 mg/dL (<100); Chloride 106 mmol/L (98-107); Cholesterol 193 mg/dL (<200); Estimated GFR 76.79 (mL/min/1.73m2); Glucose 92 mg/dL (74-106); HDL Cholesterol 62 mg/dL (40-60); Sodium 144 mmol/L (136-145); TSH (W/Ref FT4) 2.38 uIU/mL (0.36-3.74); Total Protein 8.2 g/dL (6.4-8.2); Triglyceride 154 mg/dL (<150)
[2024-03-09 19:50] LABS: Hemoglobin A1C 5.9 % (<5.7)
== END 2024-03-09 14:55 | disposition home or self-care (01) ==
LOC: NCHCN 14:54
PROVIDERS: PCP Nurse Practitioner Family; Visit Provider Nurse Practitioner Family
DX: I10 Essential (primary) hypertension (principal); E11.9 Type 2 diabetes mellitus without complications
CPT/HCPCS: 80053; 80061; 83036; 84443; 85025

== ENCOUNTER 2024-03-21 02:03 | Outpatient (CLI) | payer MEDICARE, MEDICAID, SELFPAY ==
--- NOTE | 2024-03-21 | DI.MRI_ITS ---
Exam(s) MR UPPER JOINT LT WO EXAM: MR UPPER JOINT LT WO CLINICAL HISTORY: PAIN LT SHOULDER, M25.512. TECHNIQUE: Multiplanar multisequence MRI was performed. COMPARISON: Exam is interpreted without benefit of comparison plain films. FINDINGS: BONES: There is no fracture or contusion pattern. Small subchondral cystic changes near the greater t uberosity. Bony erosion in the anterior humeral head. JOINTS:The acromioclavicular joint shows The glenohumeral joint shows a moderate effusion. Synovial thickening. Particulate material noted w ithin the effusion could indicate rice bodies. TENDONS: Supraspinatus: Thinning distally with some intact fibers, consistent with partial tear. Infraspinatus: Unremarkable. Subscapularis: Unremarkable. Teres Minor: Unremarkable. Biceps and Helen: Focal area of thickening and edema within the upper biceps tendon consistent with tendinosis. There is fluid within the biceps tendon sheath. MUSCLES: Unremarkable. GLENOID LABRUM: Unremarkable on this noncontrast examination. SOFT TISSUES: Unremarkable. BURSAE: Subacromial and subdeltoid bursae shows a small amount of fluid. There is fluid in the sub coracoid bursa with low-density debris which may represent rice bodies which could indicate rheumatoi d arthritis. IMPRESSION: Partial tear of the supraspinatus tendon. Tenosynovitis of the biceps. Moderate-sized glenohumeral joint effusion as well as fluid in the subcoracoid bursa containing debri s which could represent rice bodies which could indicate rheumatoid arthritis. Erosion in the anteri or humeral head. DATA REPOSITORY:
== END 2024-03-21 02:23 ==
LOC: DI 02:04
PROVIDERS: PCP Nurse Practitioner Family; Visit Provider Nurse Practitioner Family
DX: M75.112 Incomplete rotator cuff tear or rupture of left shoulder, not specified as traumatic (principal)
CPT/HCPCS: 73221

== ENCOUNTER 2024-05-10 14:55 | Outpatient (CLI) | payer MEDICARE, MEDICAID, SELFPAY ==
--- NOTE | 2024-05-10 10:45 | DI.RAD_ITS ---
Exam(s) XR SHOULDER LT COMPLETE 2+V EXAM: XR SHOULDER LT COMPLETE 2+V CLINICAL HISTORY: LEFT SHOULDER PAIN. TECHNIQUE: 2D digital imaging was performed of the left shoulder. Two images were obtained. Axilla ry and Grashey views were obtained. COMPARISON: MR MR UPPER JOINT LT WO from 03/21/2024 FINDINGS: BONES: No acute fracture is present. No bony destructive lesion is seen. JOINTS: No dislocation present. Mild degenerative changes are seen at the acromioclavicular joint. G lenohumeral joint appears well maintained. There is mild spurring at the undersurface of the acromio n. SOFT TISSUE: Normal. IMPRESSION: Mild degenerative changes of the left shoulder. DATA REPOSITORY: RADIATION DOSE DELIVERED:
== END 2024-05-10 14:56 | disposition home or self-care (01) ==
LOC: DIORS 14:55
PROVIDERS: PCP Nurse Practitioner Family; Referring Provider Nurse Practitioner Family; Visit Provider Student in an Organized Health Care Education/Training Program
DX: M19.012 Primary osteoarthritis, left shoulder; X50.0XXA Overexertion from strenuous movement or load, initial encounter; E11.9 Type 2 diabetes mellitus without complications; Q60.0 Renal agenesis, unilateral; F17.210 Nicotine dependence, cigarettes, uncomplicated
CPT/HCPCS: 20610; 99214; J1010; 73030

== ENCOUNTER 2024-08-21 18:10 | Outpatient (REF) | payer MEDICARE, MEDICAID, SELFPAY ==
[2024-08-21 22:43] LABS: PROTEIN 57.1 mg/dL; Prot/Crea Ur Ratio 0.30
[2024-08-21 23:02] LABS: RBC 0-2 HPF (0-2)
[2024-08-21 23:03] LABS: C & S Indicated? Yes
== END 2024-08-21 18:11 | disposition home or self-care (01) ==
LOC: NCHCN 18:10
PROVIDERS: PCP Nurse Practitioner Family; Visit Provider Family Medicine
DX: R80.9 Proteinuria, unspecified (principal)
CPT/HCPCS: 87077; 81015; 82565; 84156; 87086; 87186